=== PATIENT | female | born 1955 | race Caucasian/White ===

== ENCOUNTER 2017-11-28 12:35 | Inpatient (IN) ==
[2017-11-28] MEDS ORDERED: Naloxone Inj 0.4 MG/ML Vial ONE (12:42)
[2017-11-28] MEDS ORDERED: Naloxone Inj 2 MG/2 ML Vial IV.PUSH SCH (12:45)
[2017-11-28] MEDS ORDERED: Sod Chloride 0.9% Inj 1,000 ML IV.SIG SCH ×3 (12:45)
[2017-11-28 12:55] LABS: ABG Base Excess -2.8 mmol/L (-2-2); ABG PCO2 49 mmHg (38-42); ABG PO2 96 mmHg (61-120)
[2017-11-28 13:05] LABS: Baso # (Auto) 0.4 th/mm3 (0.0-0.2); Baso % (Auto) 3.5 % (0.0-2.0); Hematocrit 41.4 % (35.0-46.0); Hemoglobin 13.6 gm/dL (11.6-15.3); Lymph # (Auto) 0.6 th/mm3 (1.0-4.8); Lymph % (Auto) 4.6 % (9.0-44.0); Mean Corpuscular HGB Conc 32.8 % (32.0-36.0); Mean Corpuscular Volume 91.3 fL (80.0-100.0); Mono # (Auto) 0.3 th/mm3 (0.0-0.9); Mono % (Auto) 2.2 % (0.0-8.0); Neut # (Auto) 11.3 th/mm3 (1.8-7.7); Neut % (Auto) 89.7 % (16.0-70.0); Platelet Count 416 th/mm3 (150-450); Red Blood Count 4.54 mil/mm3 (4.00-5.30); Red Cell Distribution Width 14.8 % (11.6-17.2); White Blood Count 12.6 th/mm3 (4.0-11.0)
[2017-11-28 13:07] LABS: Chloride 103 meq/L (98-107); Potassium 3.8 meq/L (3.5-5.1); Sodium 140 meq/L (136-145)
[2017-11-28 13:10] LABS: Calcium 8.3 mg/dL (8.5-10.1)
[2017-11-28 13:11] LABS: Activated Partial Thrombo Time 25.8 sec (24.3-30.1); Albumin 3.8 g/dL (3.4-5.0); Anion Gap 12 meq/L (5-15); Blood Urea Nitrogen 11 mg/dL (7-18); Carbon Dioxide 25.3 meq/L (21.0-32.0); Glucose,Random 127 mg/dL (74-106); Lipase 88 U/L (73-393); Magnesium 2.2 mg/dL (1.5-2.5); Prothrombin Time 10.4 sec (9.8-11.6)
[2017-11-28 13:14] LABS: Alanine Aminotransferase 18 U/L (10-53); Aspartate Aminotransferase 17 U/L (15-37); Glomerular Filtration Rate 38 mL/min (>89); Phosphorus 5.8 mg/dL (2.5-4.9)
[2017-11-28 13:15] LABS: Total Protein 7.2 g/dL (6.4-8.2)
[2017-11-28 13:16] LABS: Alkaline Phosphatase 74 U/L (45-117)
[2017-11-28 13:19] LABS: Troponin I 0.13 ng/mL (0.02-0.05)
--- NOTE | 2017-11-28 13:26 | CT ---
EXAM DATE: 11/28/2017 1:21 PM EDT AGE/SEX: 62 years / Female INDICATIONS: Altered mental status CLINICAL DATA: This is the patient's initial encounter. Patient reports that signs and symptoms have been present for 1 day and indicates a pain score of Nonresponsive. MEDICAL/SURGICAL HISTORY: Non-responsive. Non-responsive. RADIATION DOSE: 66.93 CTDI (mGy) COMPARISON: No prior exams available for comparison. TECHNIQUE: CT of the head without contrast. Using automated exposure control and adjustment of the mA and/or kV according to patient size, radiation dose was kept as low as reasonably achievable to ob tain optimal diagnostic quality images. DICOM format image data is available electronically for revi ew and comparison. FINDINGS: Study degraded by motion artifact. The study was repeated. These were the best obtainable i mages. Cerebrum: The ventricles are normal for age. No evidence of midline shift, mass lesion, hemorrhage or acute infarction. No extraaxial fluid collections are seen. Posterior Fossa: The cerebellum and brainstem are intact. The 4th ventricle is midline. The cerebe llopontine angle is unremarkable. Extracranial: The visualized portion of the orbits is intact. Skull: The calvaria is intact. No evidence of skull fracture. CONCLUSION: 1. Study limited by motion. 2. No gross acute intracranial abnormality. . Electronically signed by: Doron Ray MD 11/28/2017 1:25 PM EDT
[2017-11-28 13:27] LABS: Creatine Kinase 33 U/L (26-192)
--- NOTE | 2017-11-28 13:27 | ED ---
HPI General Chief Complaint: Altered Mental Status Stated Complaint: Unconscious/Evac Time Seen by Provider: 11/28/17 12:43 Source: family and EMS Mode of arrival: EMS Limitations: altered mental status History of Present Illness HPI narrative: The patient 62 years old. She arrives to the ER by EMS. A friend went to visit the patient and found her to be unresponsive. EMS noted pinpoint pupils and administered 0.8 mg Narcan. No change was observed. Patient has a history of TMJ, chronic back pain as well as other chronic pain related complaints. EMS reports the patient takes oxycodone. Review of the medications includes temazepam, Percocet, Skelaxin, and Zaleplon in addition to Zofran and Dexilant and duloxetine. History is limited due to altered mental status upon arrival. GCS 3 upon arrival. Related Data Home Medications Medication Instructions Recorded Confirmed dexlansoprazole [Dexilant] 60 mg PO DAILY 11/28/17 11/28/17 duloxetine 60 mg PO DAILY 11/28/17 11/28/17 metaxalone [Skelaxin] 800 mg PO TID 11/28/17 11/28/17 ondansetron 8 mg PO TID PRN 11/28/17 11/28/17 oxycodone-acetaminophen [Percocet] 1 tab PO Q4H PRN 11/28/17 11/28/17 temazepam [Restoril] 11/28/17 thyroid (pork) [[place] Thyroid] 15 mg PO DAILY 11/28/17 11/28/17 zaleplon 10 mg PO DAILY 11/28/17 11/28/17 Allergies Allergy/AdvReac Type Severity Reaction Status Date / Time diazepam [From Valium] Allergy Anxiety Verified 11/28/17 14:55 hydromorphone [From Dilaudid] Allergy Hallucinati Verified 11/28/17 14:57 ons meperidine [From Demerol] Allergy Nausea/Vomi Verified 11/28/17 14:57 ting propoxyphene [From Darvon] Allergy Nausea/Vomi Verified 11/28/17 14:57 ting Review of Systems ROS Unobtainable ROS Unobtainable: unobtainable due to mental condition and unobtainable due to mental status PMFSH Medical History Medical History Bursitis (Acute) Gastric ulcer (Acute) IBS (irritable bowel syndrome) (Acute) Migraines (Acute) Rotator cuff (capsule) sprain (Acute) Rotator cuff arthropathy of right shoulder (Acute) Sinusitis (Acute) TMJ (dislocation of temporomandibular joint) (Acute) Surgical History Surgical History History of ear, nose, and throat (ENT) surgery (Acute) History of surgery on arm (Acute) Social History Social History Substance History: Unable to Obtain Smoking Status: Unknown if ever smoked How Often Do You Have a Drink Containing Alcohol: Unable to Obtain Recent Travel in [facility] within the Last 8 Weeks: No Recent Out of Country Travel within the Last 8 Weeks: No Exam Narrative Exam Narrative: GENERAL: 62-year-old female well-nourished well-developed GCS 3 SKIN: Focused skin assessment warm/dry. HEAD: Atraumatic. Normocephalic. EYES: Pupils are about 2 mm bilaterally. They are responsive to light. They are equal and reactive bilaterally. ENT: No nasal bleeding or discharge. Mucous membranes pink and moist. NECK: Trachea midline. No JVD. CARDIOVASCULAR: Heart rate is approximately 130-1500. Regular rhythm. RESPIRATORY: No accessory muscle use. Clear to auscultation. Breath sounds equal bilaterally. GASTROINTESTINAL: Abdomen soft, non-tender, nondistended. Hepatic and splenic margins not palpable. MUSCULOSKELETAL: No obvious deformities. No clubbing. No cyanosis. No edema. NEUROLOGICAL:GCS 3. Face appears symmetric. PSYCHIATRIC: Appropriate mood and affect; insight and judgment normal. Course Initial Documented Vital Signs Temperature 99.3 F 11/28/17 12:35 Pulse Rate 124 H 11/28/17 12:35 Respiratory Rate 24 11/28/17 12:35 Blood Pressure 133/83 11/28/17 12:35 Pulse Oximetry 93 L 11/28/17 12:35 Last Documented Vital Signs Temperature 99.3 F 11/28/17 12:35 Pulse Rate 114 H 11/28/17 13:58 Respiratory Rate 18 11/28/17 13:58 Blood Pressure 111/75 11/28/17 13:58 Pulse Oximetry 95 11/28/17 13:44 Procedures Intubation Time Out Performed: No Sedative: etomidate Mg Given: 20 Laryngoscope: Gaurang ET Tube Size: 7.5 Tube Secured Depth (cm): 22 Tube Secured Location: lips Tube Placement Confirmation: visualized tube passing through cords, equal breath sounds bilaterally, no breath sounds over epigastrium and confirmation by capnometry Patient Tolerated Procedure: well Intubation Complications: none Critical Care Time Critical Care Time: Yes Total Critical Care Time: 50 Attestation: Aggregate critical care time was 40 minutes. Time to perform other separately billable procedures was not included in the critical care time. My time did not include minutes spent treating any other patients simultaneously or on activities that did not directly contribute to the patient's treatment. The services I provided to this patient were to treat and/or prevent clinically significant deterioration that could result in: Cardiopulmonary arrest, permanent weakness I provided critical care services requiring my management, as noted below: Chart data review, documentation time, medication orders and management, vital sign assessments/reviewing monitor data, ordering and reviewing lab tests, ordering and interpreting/reviewing x-rays and diagnostic studies, care of the patient and discussion of the patient with the admitting physicians. Medical Decision Making MDM Narrative Medical decision making narrative: Pt awoke for about ten seconds after one 4mg IV Narcan dose. Movements were symmetric and face remained symmetric in appearance during the brief interval responsiveness. Patient was intubated about an hour after a stay of the mental status had not changed and the O2 94 on a nonrebreather and nasal cannula was etiology unclear however polypharmacy strongly considered given the breath of sedative agents that the patient takes. We do see a bilateral pneumonia of indeterminate etiology may be aspiration. Case was discussed with Dr. Ray for the [employer] interface developer service. The patient will stay here [place]. Family reported the patient has a history of symptoms stapes which is evidently contraindication to MR imaging. Medical Screen Exam Complete: Yes Emergency Medical Condition: Yes Differential Diagnosis Differential Diagnosis: sepsis, ich, ischemic cva, anoxia, polypharmacy Medical Records not available. Lab Data Lab results reviewed: Yes I reviewed the patient's lab results. Lab results narrative: LFTs normal U tox Result diagrams: 11/28/17 12:53 11/28/17 12:53 Lab Results 11/28/17 11/28/17 11/28/17 Range/Units 12:48 12:53 12:53 CBC w Diff Auto diff final WBC 12.6 H (4.0-11.0) th/mm3 RBC 4.54 (4.00-5.30) mil/mm3 Hgb 13.6 (11.6-15.3) gm/dL Hct 41.4 (35.0-46.0) % MCV 91.3 (80.0-100.0) fL MCH 30.0 (27.0-34.0) pg MCHC 32.8 (32.0-36.0) % RDW 14.8 (11.6-17.2) % Plt Count 416 (150-450) th/mm3 MPV 8.0 (7.0-11.0) fL Neut % (Auto) 89.7 H (16.0-70.0) % Lymph % (Auto) 4.6 L (9.0-44.0) % [place]field % (Auto) 2.2 (0.0-8.0) % Eos % (Auto) 0.0 (0.0-4.0) % Baso % (Auto) 3.5 H (0.0-2.0) % Neut # (Auto) 11.3 H (1.8-7.7) th/mm3 Lymph # (Auto) 0.6 L (1.0-4.8) th/mm3 [place]field # (Auto) 0.3 (0.0-0.9) th/mm3 Eos # (Auto) 0.0 (0.0-0.4) th/mm3 Baso # (Auto) 0.4 H (0.0-0.2) th/mm3 WBC Differential . Differential Comment . PT 10.4 (9.8-11.6) sec INR 1.0 Ratio APTT 25.8 (24.3-30.1) sec Puncture Site Right radial Patient Temperature 98.6 O2 Saturation 95 (90-100) % ABG pH 7.29 L* (7.380-7.420) ABG pCO2 49 H (38-42) mmHg ABG pO2 96 (61-120) mmHg ABG HCO3 23 (22-26) mmol/L ABG O2 Content 16.6 (12.0-20.0) Vol % ABG Base Excess -2.8 L (-2-2) mmol/L ABG Methemoglobin 1.3 (0-2) % Jared Test Present Hemoglobin 12.3 (12.0-16.0) G/DL Carboxyhemoglobin 1.3 (0-4) % O2 Delivery Device Nrb Liter Flow 12.00 L/M Critical Value Yes Sodium (136-145) meq/L Potassium (3.5-5.1) meq/L Chloride (98-107) meq/L Carbon Dioxide (21.0-32.0) meq/L Anion Gap (5-15) meq/L BUN (7-18) mg/dL Creatinine (0.50-1.00) mg/dL Estimated GFR (>89) mL/min Random Glucose (74-106) mg/dL Lactic Acid (0.4-2.0) mmol/L Calcium (8.5-10.1) mg/dL Phosphorus (2.5-4.9) mg/dL Magnesium (1.5-2.5) mg/dL Total Bilirubin (0.2-1.0) mg/dL AST (15-37) U/L ALT (10-53) U/L Alkaline Phosphatase (45-117) U/L Total Creatine Kinase (26-192) U/L Troponin I (0.02-0.05) ng/mL Total Protein (6.4-8.2) g/dL Albumin (3.4-5.0) g/dL Lipase (73-393) U/L Ur Collection Type Urine Color (Yellw/Straw) Urine Clarity (Clear) Urine pH (5.0-8.5) Ur Specific [place] (1.002-1.035) Urine Protein (Neg-Trace) mg/dL Urine Glucose (UA) (Negative) mg/dL Urine Ketones (Negative) mg/dL Urine Occult Blood (Negative) Urine Nitrate (Negative) Urine Bilirubin (Negative) Urine Urobilinogen (Less than 2) mg/dL Ur Leukocyte Esterase (Negative) Ur Transition Epith Cell (None) /hpf Amorphous Sediment (None) /hpf Micro UA Comment Ur Microscopic Review Urine Culture Comments Urine Collection Time hours Salicylates (2.8-20.0) mg/dL Acetaminophen (10.0-30.0) mcg/mL Serum Alcohol (0-5) mg/dL 11/28/17 11/28/17 11/28/17 Range/Units 12:53 12:53 12:53 CBC w Diff WBC (4.0-11.0) th/mm3 RBC (4.00-5.30) mil/mm3 Hgb (11.6-15.3) gm/dL Hct (35.0-46.0) % MCV (80.0-100.0) fL MCH (27.0-34.0) pg MCHC (32.0-36.0) % RDW (11.6-17.2) % Plt Count (150-450) th/mm3 MPV (7.0-11.0) fL Neut % (Auto) (16.0-70.0) % Lymph % (Auto) (9.0-44.0) % [place]field % (Auto) (0.0-8.0) % Eos % (Auto) (0.0-4.0) % Baso % (Auto) (0.0-2.0) % Neut # (Auto) (1.8-7.7) th/mm3 Lymph # (Auto) (1.0-4.8) th/mm3 [place] # (Auto) (0.0-0.9) th/mm3 Eos # (Auto) (0.0-0.4) th/mm3 Baso # (Auto) (0.0-0.2) th/mm3 WBC Differential Differential Comment PT (9.8-11.6) sec INR Ratio APTT (24.3-30.1) sec Puncture Site Patient Temperature O2 Saturation (90-100) % ABG pH (7.380-7.420) ABG pCO2 (38-42) mmHg ABG pO2 (61-120) mmHg ABG HCO3 (22-26) mmol/L ABG O2 Content (12.0-20.0) Vol % ABG Base Excess (-2-2) mmol/L ABG Methemoglobin (0-2) % Jared Test Hemoglobin (12.0-16.0) G/DL Carboxyhemoglobin (0-4) % O2 Delivery Device Liter Flow L/M Critical Value Sodium 140 (136-145) meq/L Potassium 3.8 (3.5-5.1) meq/L Chloride 103 (98-107) meq/L Carbon Dioxide 25.3 (21.0-32.0) meq/L Anion Gap 12 (5-15) meq/L BUN 11 (7-18) mg/dL Creatinine 1.40 H (0.50-1.00) mg/dL Estimated GFR 38 L (>89) mL/min Random Glucose 127 H (74-106) mg/dL Lactic Acid (0.4-2.0) mmol/L Calcium 8.3 L (8.5-10.1) mg/dL Phosphorus 5.8 H (2.5-4.9) mg/dL Magnesium 2.2 (1.5-2.5) mg/dL Total Bilirubin Less than 0.1 L (0.2-1.0) mg/dL AST 17 (15-37) U/L ALT 18 (10-53) U/L Alkaline Phosphatase 74 (45-117) U/L Total Creatine Kinase 33 (26-192) U/L Troponin I 0.13 H (0.02-0.05) ng/mL Total Protein 7.2 (6.4-8.2) g/dL Albumin 3.8 (3.4-5.0) g/dL Lipase 88 (73-393) U/L Ur Collection Type Urine Color (Yellw/Straw) Urine Clarity (Clear) Urine pH (5.0-8.5) Ur Specific [place] (1.002-1.035) Urine Protein (Neg-Trace) mg/dL Urine Glucose (UA) (Negative) mg/dL Urine Ketones (Negative) mg/dL Urine Occult Blood (Negative) Urine Nitrate (Negative) Urine Bilirubin (Negative) Urine Urobilinogen (Less than 2) mg/dL Ur Leukocyte Esterase (Negative) Ur Transition Epith Cell (None) /hpf Amorphous Sediment (None) /hpf Micro UA Comment Ur Microscopic Review Urine Culture Comments Urine Collection Time hours Salicylates Less than 1.7 L (2.8-20.0) mg/dL Acetaminophen 3.0 L (10.0-30.0) mcg/mL Serum Alcohol Less than 3 (0-5) mg/dL 11/28/17 11/28/17 Range/Units 13:40 13:52 CBC w Diff WBC (4.0-11.0) th/mm3 RBC (4.00-5.30) mil/mm3 Hgb (11.6-15.3) gm/dL Hct (35.0-46.0) % MCV (80.0-100.0) fL MCH (27.0-34.0) pg MCHC (32.0-36.0) % RDW (11.6-17.2) % Plt Count (150-450) th/mm3 MPV (7.0-11.0) fL Neut % (Auto) (16.0-70.0) % Lymph % (Auto) (9.0-44.0) % [place]field % (Auto) (0.0-8.0) % Eos % (Auto) (0.0-4.0) % Baso % (Auto) (0.0-2.0) % Neut # (Auto) (1.8-7.7) th/mm3 Lymph # (Auto) (1.0-4.8) th/mm3 [place] # (Auto) (0.0-0.9) th/mm3 Eos # (Auto) (0.0-0.4) th/mm3 Baso # (Auto) (0.0-0.2) th/mm3 WBC Differential Differential Comment PT (9.8-11.6) sec INR Ratio APTT (24.3-30.1) sec Puncture Site Patient Temperature O2 Saturation (90-100) % ABG pH (7.380-7.420) ABG pCO2 (38-42) mmHg ABG pO2 (61-120) mmHg ABG HCO3 (22-26) mmol/L ABG O2 Content (12.0-20.0) Vol % ABG Base Excess (-2-2) mmol/L ABG Methemoglobin (0-2) % Jared Test Hemoglobin (12.0-16.0) G/DL Carboxyhemoglobin (0-4) % O2 Delivery Device Liter Flow L/M Critical Value Sodium (136-145) meq/L Potassium (3.5-5.1) meq/L Chloride (98-107) meq/L Carbon Dioxide (21.0-32.0) meq/L Anion Gap (5-15) meq/L BUN (7-18) mg/dL Creatinine (0.50-1.00) mg/dL Estimated GFR (>89) mL/min Random Glucose (74-106) mg/dL Lactic Acid 2.2 H (0.4-2.0) mmol/L Calcium (8.5-10.1) mg/dL Phosphorus (2.5-4.9) mg/dL Magnesium (1.5-2.5) mg/dL Total Bilirubin (0.2-1.0) mg/dL AST (15-37) U/L ALT (10-53) U/L Alkaline Phosphatase (45-117) U/L Total Creatine Kinase (26-192) U/L Troponin I (0.02-0.05) ng/mL Total Protein (6.4-8.2) g/dL Albumin (3.4-5.0) g/dL Lipase (73-393) U/L Ur Collection Type Cath Urine Color Yellow (Yellw/Straw) Urine Clarity Clear (Clear) Urine pH 5.0 (5.0-8.5) Ur Specific [place] 1.010 (1.002-1.035) Urine Protein Negative (Neg-Trace) mg/dL Urine Glucose (UA) Negative (Negative) mg/dL Urine Ketones Negative (Negative) mg/dL Urine Occult Blood Negative (Negative) Urine Nitrate Negative (Negative) Urine Bilirubin Negative (Negative) Urine Urobilinogen 0.2 (Less than 2) mg/dL Ur Leukocyte Esterase Negative (Negative) Ur Transition Epith Cell 1-5 H (None) /hpf Amorphous Sediment Moderate H (None) /hpf Micro UA Comment Cath-culture not ind Ur Microscopic Review Microscopic reviewed Urine Culture Comments Cath-cult not ind Urine Collection Time 1352 hours Salicylates (2.8-20.0) mg/dL Acetaminophen (10.0-30.0) mcg/mL Serum Alcohol (0-5) mg/dL Imaging Data Radiologist's impression: Chest X-Ray 11/28/17 12:44 CONCLUSION: Endotracheal tube. Mild bibasilar atelectasis versus developing infiltrates. Head CT 11/28/17 12:44 CONCLUSION: 1. Study limited by motion. 2. No gross acute intracranial abnormality. . Chest CTA 11/28/17 12:47 CONCLUSION: 1. Mildly distended and fluid-filled esophagus. 2. Bilateral airspace disease. 3. No evidence for pulmonary embolism. Discharge Plan Discharge Disposition Patient Disposition: 30 Still Patient Physicians Team ED Provider: Fidencio Ng Primary Care Provider: UNKNOWN, Attending Provider: Roshan Lowry Discharge Interventions Interventions: Vital Signs Last Done: 11/28/17 13:58 Status ED Status: Admitted Patient
--- NOTE | 2017-11-28 13:44 | CT ---
EXAM DATE: 11/28/2017 1:36 PM EDT AGE/SEX: 62 years / Female INDICATIONS: Chest Pain CLINICAL DATA: This is the patient's initial encounter. Patient reports that signs and symptoms have been present for 1 day and indicates a pain score of Nonresponsive. MEDICAL/SURGICAL HISTORY: Non-responsive. Non-responsive. RADIATION DOSE: 20.49 CTDI (mGy) COMPARISON: [facility], CHEST 1V SINGLE AP, 11/28/2017. . TECHNIQUE: Volumetric scanning was performed using a multi-row detector CT scanner during bolus infu mega of 80ML ml Omnipaque 350 (iohexol) nonionic water-soluble contrast as a single exam dose. The d jimmie was post processed with a variety of visualization algorithms including full volume maximum inten sity projection and sliding thin slab reformation. Using automated exposure control and adjustment o f the mA and/or kV according to patient size, radiation dose was kept as low as reasonably achievable to obtain optimal diagnostic quality images. DICOM format image data is available electronically fo r review and comparison. FINDINGS: The esophagus is mildly distended and fluid-filled. Small pericardial effusion. No evidence for pulmo nary embolism. No pathologically enlarged lymph nodes are seen. Coronary artery calcification is note d. Review of lung windows demonstrate patchy consolidation in the right upper lobe, scattered nodular infiltrates in the left upper lobe, and bilateral lower lobe consolidation with air bronchogram form ation. There are degenerative changes of the spine seen. CONCLUSION: 1. Mildly distended and fluid-filled esophagus. 2. Bilateral airspace disease. 3. No evidence for pulmonary embolism. Electronically signed by: Jim Morales MD 11/28/2017 1:42 PM EDT
[2017-11-28] MEDS ORDERED: Etomidate Inj 40 MG/20 ML Vial IV.PUSH ONE (13:54)
[2017-11-28] MEDS ORDERED: Vancomycin Inj 1 GM/200 ML PIGGYBACK IV.SIG SCH (14:00)
--- NOTE | 2017-11-28 14:18 | XR ---
EXAM DATE: 11/28/2017 2:15 PM EDT AGE/SEX: 62 years / Female INDICATIONS: Post intubation CLINICAL DATA: This is the patient's initial encounter. Patient reports that signs and symptoms have been present for 1 day and indicates a pain score of Nonresponsive. MEDICAL/SURGICAL HISTORY: Non-responsive. Non-responsive. COMPARISON: No prior exams available for comparison. FINDINGS: A single AP view of the chest demonstrates an endotracheal tube with the tip 1.5 cm from the adali. The heart shows a left ventricular prominence. Medial bibasilar consolidations are noted. No effusion s. Remaining lungs are clear. Underlying chronic interstitial changes noted. CONCLUSION: Endotracheal tube. Mild bibasilar atelectasis versus developing infiltrates. Electronically signed by: Doron Ray MD 11/28/2017 2:16 PM EDT
[2017-11-28 14:20] LABS: Bilirubin,Urine Negative (Negative); Clarity,Urine Clear (Clear); Color,Urine Yellow (Yellw/Straw); Glucose,Urine (UA) Negative (Negative); Leukocyte Esterase,Urine Negative (Negative); Nitrite,Urine Negative (Negative); Urobilinogen,Urine 0.2 mg/dL (Less than 2)
[2017-11-28 14:23] LABS: Collection Time,Urine 1352 hours
[2017-11-28 14:24] LABS: Amorphous Sediment,Urine Moderate /hpf
[2017-11-28] MEDS ORDERED: Magnesium Sulfate Inj 4 GM in Sodium Chlor 0.9% Inj 92 ML IV.SIG PRN (14:25)
[2017-11-28] MEDS ORDERED: Potassium Phosphate Inj 30 MMOL in Sodium Chlor 0.9% Inj 250 ML IV.SIG PRN (14:25)
[2017-11-28] MEDS ORDERED: Magnesium Oxide 400 MG Tablet PO PRN (14:25)
[2017-11-28] MEDS ORDERED: Sodium Phosphate Inj 30 MMOL in Sodium Chlor 0.9% Inj 250 ML IV.SIG PRN (14:25)
[2017-11-28] MEDS ORDERED: Magnesium Sulfate Inj 2 GM in Sodium Chlor 0.9% Inj 96 ML IV.SIG PRN (14:25)
[2017-11-28] MEDS ORDERED: Potassium Chloride 25 MEQ Effervescent Tablet PO PRN (14:25)
[2017-11-28] MEDS ORDERED: Potassium Chlor 20 mEq Premix 20 MEQ/100 ML PIGGYBACK IV.SIG PRN ×2 (14:25)
[2017-11-28] MEDS ORDERED: Bisacodyl 10 MG Supp RECTAL PRN (14:25)
[2017-11-28] MEDS ORDERED: Potassium Phosphate 500 MG Soluble Tablet PO PRN ×2 (14:25)
[2017-11-28] MEDS ORDERED: Potassium Chlor 40 mEq Premix 40 MEQ/100 ML PIGGYBACK IV.SIG PRN ×2 (14:25)
[2017-11-28] MEDS ORDERED: Propofol 1000 mg/100 ml Inj 1,000 MG/100 ML BOTTLE IV.CONT PRN (14:29)
[2017-11-28] MEDS ORDERED: Naloxone Inj 2 MG/2 ML Vial IV.PUSH ONE ×3 (14:53→14:54)
[2017-11-28] MEDS ORDERED: Naloxone Inj 0.4 MG/ML Vial IV.PUSH ONE ×2 (14:54→14:55)
[2017-11-28] MEDS ORDERED: Etomidate Inj 20 MG/10 ML Ampul IV.PUSH ONE (14:55)
[2017-11-28] MEDS ORDERED: Vancomycin Consult Pharmacy OTHER PRN (15:00)
[2017-11-28] MEDS ORDERED: Vancomycin Inj 1,000 MG in Sodium Chlor 0.9% Inj 250 ML IV.SIG ONE (15:00)
[2017-11-28 15:13] LABS: ABG PCO2 43 mmHg (38-42); ABG PO2 82 mmHg (61-120)
[2017-11-28] MEDS: Enoxaparin Inj 40 MG/0.4 ML Syringe SQ SCH (16:26)
--- NOTE | 2017-11-28 16:46 | XR ---
EXAM DATE: 11/28/2017 4:36 PM EDT AGE/SEX: 62 years / Female INDICATIONS: OG tube placement. CLINICAL DATA: This is the patient's initial encounter. Patient reports that signs and symptoms have been present for 1 day and indicates a pain score of Nonresponsive. MEDICAL/SURGICAL HISTORY: Non-responsive. Non-responsive. COMPARISON: No prior exams available for comparison. FINDINGS: Single AP view of the abdomen. Nasogastric tube is in place with the tip in the distal stomach. Endot khalif tube tip is 1 cm above the adali. CONCLUSION: Nasogastric tube in place with the tip in the distal stomach. Electronically signed by: Huber Coley MD 11/28/2017 4:45 PM EDT
[2017-11-28] MEDS ORDERED: Naloxone Inj 4 MG/10 ML MDV IV.PUSH ONE (16:59)
[2017-11-28] MEDS: Oral Hygiene Kit OROPHARYNG SCH (17:03)
--- NOTE | 2017-11-28 17:16 | P.HPCC ---
History of Present Illness Service: Critical Care Medicine Primary Care Physician: UNKNOWN Chief Complaint: altered mental status History of Present Illness: 62yF with history of chronic pain on multiple psychotropic drugs including percocet, found unresponsive by her sister at home. Per her sister, she usually sleeps a lot, and she was last seen normal at 1300 on 11/27. Today after almost 23 hours, she went to wake her sister and found her unresponsive. On further investigation tonight, her sister found an empty bottle which was labeled "oxycodone/APAP". brought in by EMS. GCS 3. pupils pinpoint. no improvement with [address] head, chest negative for acute disease. ? aspiration pneumonia. unknown other history. ROS unobtainable. slightly elevated Cr, wbc elevated with left shift, lactate rising. afebrile, blood pressure stable. tachycardic. intubated in the ER for persistent encephalopathy. no additional information available. Inpatient Certification: I certify that the inpatient services were ordered in accordance with Medicare regulations governing the order. This includes certification that hospital inpatient services are reasonable and necessary and in the case of services not specified as inpatient-only under 42 CFR 419.22(n), that they are appropriately provided as inpatient services in accordance to with the 2-midnight benchmark under 43 CFR 412.3(e) Estimated Total Length of Stay (Days): 7 Plans for Post Hospital Care: Not yet determined Review of Systems unobtainable due to endotracheal tube, unobtainable due to mental condition, unobtainable due to mental status PMFSH - History History Provided By: Medical Record - Medical / Surgical Hx Neg / Unobtainable Medical Problems Denied: Unable to Obtain Surgical History: Unable to Obtain - Medical History Medical History: Medical History (Last Reviewed 11/28/17 @ 17:08 by Roshan Lowry MD) Bursitis Gastric ulcer IBS (irritable bowel syndrome) Migraines Rotator cuff (capsule) sprain Rotator cuff arthropathy of right shoulder Sinusitis TMJ (dislocation of temporomandibular joint) - Surgical History Surgical History: Surgical History (Last Reviewed 11/28/17 @ 17:08 by Roshan Lowry MD) History of ear, nose, and throat (ENT) surgery History of surgery on arm - Social History I have reviewed the patient's Social History: Yes - Tobacco History Smoking Status: Unknown if ever smoked - Alcohol History How Often Do You Have a Drink Containing Alcohol: Unable to Obtain - Substance Use History Substance History: Unable to Obtain - Travel History Recent Travel in the [place] Within the Last 8 Weeks: No Recent Travel Out of the Country Within the Last 8 Weeks: No - Immunization History Tetanus Immunization: Unable to Assess Hx Influenza Vaccine This Season: Unable to Assess Medications and Allergies Active Medications: Active Medications Albuterol (Duoneb Neb (Prn)) 1 ampul NEB Q2HR NEB PRN PRN Reason: WHEEZING Albuterol (Duoneb Neb (Mago)) 1 ampul NEB Q6HR NEB [facility] Last Admin: 11/28/17 15:50 Dose: 1 ampul Bisacodyl (Dulcolax Supp) 10 mg RECTAL DAILY PRN PRN Reason: if no BM in last 24h Chlorhexidine Gluconate (Chlorhexidine 2% Cloth) 3 pack TOPICAL DAILY@0400 [facility] Stop: 12/04/17 03:59 Chlorhexidine Gluconate (Chlorhexidine 2% Cloth) 3 pack TOPICAL DAILY@0400 PRN PRN Reason: Extra cloth needed Stop: 12/04/17 03:59 Chlorhexidine Gluconate (Peridex 0.12% Oral Kit) 15 ml OROPHARYNG BID@0800, 2000 [facility] Dextrose (D50w Syringe) 50 ml IV.PUSH UNSCH PRN PRN Reason: PER HYPOGLYCEMIA PROTOCOL Enoxaparin Sodium (Lovenox Inj) 40 mg SQ Q24H [facility] Last Admin: 11/28/17 16:26 Dose: 40 mg Famotidine (Pepcid Pf Inj) 20 mg IV.PUSH Q12HR [facility] Glucagon (Glucagon Inj) 1 mg IM ONCE PRN PRN Reason: blood sugar < 60, no iv access Sodium Chloride (Ns Inj) 1,000 mls @ 0 mls/hr IV.SIG .Q0M [facility] Last Infusion: 11/28/17 14:01 Dose: Infused Sodium Chloride (Ns Inj) 1,000 mls @ 0 mls/hr IV.SIG .Q0M [facility] Last Infusion: 11/28/17 16:26 Dose: Infused Sodium Chloride (Ns Inj) 1,000 mls @ 0 mls/hr IV.SIG .Q0M [facility] Last Infusion: 11/28/17 16:26 Dose: Infused Lactated Ringer's (Lr 1000 Ml Inj) 1,000 mls @ 999 mls/hr IV.CONT .Q1H1M [facility] Last Admin: 11/28/17 17:03 Dose: Not Given Lactated Ringer's (Lr 1000 Ml Inj) 1,000 mls @ 84 mls/hr IV.CONT .[id number] [facility] Last Admin: 11/28/17 17:03 Dose: 84 mls/hr Magnesium Sulfate Inj 4 gm/ (Sodium Chloride) 100 mls @ 50 mls/hr IV.SIG UNSCH PRN PRN Reason: For Magnesium 0.9 - 1.1 mg/dL Magnesium Sulfate Inj 2 gm/ (Sodium Chloride) 100 mls @ 50 mls/hr IV.SIG UNSCH PRN PRN Reason: For Magnesium 1.2 - 1.6 mg/dL Potassium Chloride (Kcl 40 Meq Premix Inj) 40 meq in 100 mls @ 25 mls/hr IV.SIG Q2H PRN PRN Reason: For Potassium 2.8 - 3.2 mEq/L Potassium Chloride (Kcl 20 Meq Premix Inj) 20 meq in 100 mls @ 50 mls/hr IV.SIG Q2H PRN PRN Reason: For Potassium 3.3 - 3.5 mEq/L Potassium Chloride (Kcl 40 Meq Premix Inj) 40 meq in 100 mls @ 25 mls/hr IV.SIG UNSCH PRN PRN Reason: For Potassium 3.3 - 3.5 mEq/L Potassium Chloride (Kcl 20 Meq Premix Inj) 20 meq in 100 mls @ 50 mls/hr IV.SIG Q2H PRN PRN Reason: For Potassium 2.8 - 3.2 mEq/L Potassium Phosphate 30 mmol/ (Sodium Chloride) 260 mls @ 42 mls/hr IV.SIG UNSCH PRN PRN Reason: SEE LABEL COMMENTS Propofol (Diprivan 1000 Mg/100 Ml Inj) 1,000 mg in 100 mls @ 3.13 mls/hr IV.CONT TITRATE PRN; Protocol PRN Reason: Per Protocol Last Titration: 11/28/17 16:49 Dose: 10 mcg/kg/min, 6.26 mls/hr Sodium Phosphate 30 mmol/ (Sodium Chloride) 260 mls @ 42 mls/hr IV.SIG UNSCH PRN PRN Reason: For Phosphorus < 2.5 mg/dL Ampicillin Sodium/Sulbactam (Sodium 3 gm/ Sodium Chloride) 100 mls @ 200 mls/ hr IV.SIG Q6H [facility] Insulin Human Regular (Novolin R Inj) 1 units SQ Q6HR [facility]; Protocol Lactulose (Lactulose Liq) 30 ml PO BID [facility] Magnesium Oxide (Mag-Ox) 800 mg PO UNSCH PRN PRN Reason: For Magnesium 1.2 - 1.6 mg/dL Ondansetron HCl (Zofran Inj) 4 mg IV.PUSH Q6H PRN PRN Reason: NAUSEA OR VOMITING Pharmacy Profile Note (Vancomycin Consult Pharmacy) 1 each OTHER UNSCH PRN PRN Reason: Pharmacy to dose Polyethylene Glycol (Miralax) 17 gm PO BID [facility] Potassium Bicarb/Potassium Chloride (K-Lyte Cl Eff) 50 meq PO UNSCH PRN PRN Reason: For Potassium 3.3 - 3.5 mEq/L Potassium Phosphate (K-Phos Original) 2,000 mg PO Q4H PRN PRN Reason: Phosphorus Less Than 2.5 mg/dL Potassium Phosphate (K-Phos Original) 2,000 mg PO UNSCH PRN PRN Reason: SEE LABEL COMMENTS Senna/Docusate Sodium (Carmen-Colace) 1 tab PO BID [facility] Sodium Chloride (Ns Flush) 2 ml IV.FLUSH UNSCH PRN PRN Reason: FLUSH AFTER USING IV ACCESS Allergies Allergy/AdvReac Type Severity Reaction Status Date / Time diazepam [From Valium] Allergy Anxiety Verified 11/28/17 14:55 hydromorphone [From Dilaudid] Allergy Hallucinati Verified 11/28/17 14:57 ons meperidine [From Demerol] Allergy Nausea/Vomi Verified 11/28/17 14:57 ting propoxyphene [From Darvon] Allergy Nausea/Vomi Verified 11/28/17 14:57 ting Home Medications Medication Instructions Recorded Confirmed Type dexlansoprazole [Dexilant] 60 mg PO DAILY 11/28/17 11/28/17 History duloxetine 60 mg PO DAILY 11/28/17 11/28/17 History metaxalone [Skelaxin] 800 mg PO TID 11/28/17 11/28/17 History ondansetron 8 mg PO TID PRN 11/28/17 11/28/17 History oxycodone-acetaminophen [Percocet] 1 tab PO Q4H PRN 11/28/17 11/28/17 History temazepam [Restoril] 11/28/17 History thyroid (pork) [[place] Thyroid] 15 mg PO DAILY 11/28/17 11/28/17 History zaleplon 10 mg PO DAILY 11/28/17 11/28/17 History Results - Labs CBC & Chem 7: 11/28/17 12:53 11/28/17 12:53 Labs: Short CBC 11/28/17 Range/Units 12:53 WBC 12.6 H (4.0-11.0) th/mm3 Hgb 13.6 (11.6-15.3) gm/dL Hct 41.4 (35.0-46.0) % Plt Count 416 (150-450) th/mm3 BMP 11/28/17 12:53 Sodium 140 Potassium 3.8 Chloride 103 Carbon Dioxide 25.3 BUN 11 Creatinine 1.40 H Calcium 8.3 L Cardiac Enzymes 11/28/17 11/28/17 Range/Units 12:53 16:10 Total Creatine Kinase 33 39 (26-192) U/L Troponin I 0.13 H (0.02-0.05) ng/mL Liver Function 11/28/17 Range/Units 12:53 Total Bilirubin Less than 0.1 L (0.2-1.0) mg/dL AST 17 (15-37) U/L ALT 18 (10-53) U/L Alkaline Phosphatase 74 (45-117) U/L Albumin 3.8 (3.4-5.0) g/dL Urine 11/28/17 Range/Units 13:52 Urine Color Yellow (Yellw/Straw) Urine Clarity Clear (Clear) Urine pH 5.0 (5.0-8.5) Ur Specific [place] 1.010 (1.002-1.035) Urine Protein Negative (Neg-Trace) mg/dL Urine Glucose (UA) Negative (Negative) mg/dL - Imaging Impressions Chest X-Ray 11/28/17 12:44 CONCLUSION: Endotracheal tube. Mild bibasilar atelectasis versus developing infiltrates. Head CT 11/28/17 12:44 CONCLUSION: 1. Study limited by motion. 2. No gross acute intracranial abnormality. . Chest CTA 11/28/17 12:47 CONCLUSION: 1. Mildly distended and fluid-filled esophagus. 2. Bilateral airspace disease. 3. No evidence for pulmonary embolism. Abdomen X-Ray 11/28/17 16:11 CONCLUSION: Nasogastric tube in place with the tip in the distal stomach. Exam Vital signs: Vital Signs 11/28/17 12:35 11/28/17 12:44 11/28/17 13:44 Temperature 37.4 C Pulse Rate 124 H 114 H Respiratory Rate 24 18 Blood Pressure 133/83 107/70 Pulse Oximetry 93 L 94 L 95 11/28/17 13:58 11/28/17 14:09 11/28/17 14:24 Temperature Pulse Rate 114 H 118 H Respiratory Rate 18 12 16 Blood Pressure 111/75 114/74 Pulse Oximetry 97 11/28/17 15:51 11/28/17 15:52 11/28/17 15:58 Temperature 36.6 C Pulse Rate 115 H 118 H Respiratory Rate 16 32 H Blood Pressure 127/78 Pulse Oximetry 95 11/28/17 16:05 11/28/17 16:38 Temperature Pulse Rate 116 H 116 H Respiratory Rate 15 0 L Blood Pressure 113/73 118/81 Pulse Oximetry 90 L 98 Intake & Output 11/27/17 11/28/17 11/28/17 18:59 06:59 18:59 Intake Total 3100 / 3100 Balance 3100 / 3100 Weight 86.5 kg Intake: IV 3100 / 3100 Maxipime Inj 2,000 MG In NS Inj 100 / 100 100 ML @ 200 mls/hr IV.SIG ONCE ONE Rx#:[id number] NS Inj 1,000 ML @ Wide Open IV. 3000 / 3000 SIG .Q0M [facility] Rx#:[id number] Other: Weight On Admission 104.326 kg Narrative: gen: middle-aged appearing female, lying in bed, intubated, obtunded heent: nc. at. pupils are 1-2mm, equal, sluggishly reactive. mucous membranes are dry. neck: no jvd. trachea midline. chest: equal chest rise. prvc. fio2 50%. spo2 100%. peep 5. cv: tachycardic rate in the 110s, regular rhythm. sinus. abd: soft, nontender, nondistended. no guarding. extr: warm, well-perfused. distal pulses 2+. no edema : lopez in place with dark yellow urine. Neuro: RASS -4. to deep stimulation will move all 4 extremities, but not purposefully. does not localize. weakly withdraws x 4. does not follow commands. grimaces. GCS 6 ([id number]). +cough. +gag. +corneals. Septic Shock Reassessment Septic shock perfusion: reassessment completed Caprini VTE Risk Assessment Caprini VTE Risk Assessment: Moderate/High Risk (score >= 2) Caprini Risk Assessment Model: Point Value = 1 Point Value = 2 Point Value = 3 Point Value = 5 Age 41-60 Minor surgery BMI > 25 kg/m2 Swollen legs Varicose veins or History of unexplained or recurrent spontaneous Oral contraceptives or hormone replacement Sepsis (< 1 month) Serious lung disease, including pneumonia (< 1 month) Abnormal pulmonary function Acute myocardial infarction Congestive heart failure (< 1 month) History of inflammatory bowel disease Medical patient at bed rest Age 61-74 Arthroscopic surgery Major open surgery (> 45 min) Laparoscopic surgery (> 45 min) Malignancy Confined to bed (> 72 hours) Immobilizing plaster cast Central venous access Age >= 75 History of VTE Family history of VTE Factor V Leiden Prothrombin 79013H Lupus anticoagulant Anticardiolipin antibodies Elevated serum homocysteine Heparin-induced thrombocytopenia Other congenital or acquired thrombophilia Stroke (< 1 month) Elective arthroplasty Hip, pelvis, or leg fracture Acute spinal cord injury (< 1 month) Prophylaxis Regimen: Total Risk Factor Score Risk Level Prophylaxis Regimen 0-1 Low Early ambulation 2 Moderate Order ONE of the following: *Sequential Compression Device (SCD) *Heparin 5000 units SQ BID 3-4 Higher Order ONE of the following medications: *Heparin 5000 units SQ TID *Enoxaparin/Lovenox 40 mg SQ daily (WT < 150 kg, CrCl > 30 mL/min) *Enoxaparin/Lovenox 30 mg SQ daily (WT < 150 kg, CrCl > 10-29 mL/min) *Enoxaparin/Lovenox 30 mg SQ BID (WT < 150 kg, CrCl > 30 mL/min) AND/OR *Sequential Compression Device (SCD) 5 or more Highest Order ONE of the following medications: *Heparin 5000 units SQ TID (Preferred with Epidurals) *Enoxaparin/Lovenox 40 mg SQ daily (WT < 150 kg, CrCl > 30 mL/min) *Enoxaparin/Lovenox 30 mg SQ daily (WT < 150 kg, CrCl > 10-29 mL/min) *Enoxaparin/Lovenox 30 mg SQ BID (WT < 150 kg, CrCl > 30 mL/min) AND *Sequential Compression Device (SCD) Assessment and Plan - Assessment and Plan Plan: Assessment: 62yF with acute encephalopathy. She has a medication list that includes a large list of psychotropic medications. Her tylenol level is negative : will recheck, but if both are negative, very unlikely that she acutely ingested an entire bottle of percocet. More likely that she ingested other pills. Will empirically cover for community acquired aspiration pneumonia and closely observe mental status. Very critically ill with respiratory failure, GRACIELA, and severe encephalopathy most likely secondary to medication overdose. Neuro: Severe Acute encephalopathy- most likely toxic secondary to medication overdose frequent neuro checks avoid long-acting sedatives propofol for goal RASS -2 CT head negative for acute disease MRI brain EEG Resp: Acute hypoxic and hypercarbic respiratory failure Community Acquired Aspiration Pneumonia vent bundle hob elevated nebs wean fio2 for goal spo2 > 90% no weaning of mechanical ventilation until mental status improves CV: Elevated Troponin Sinus tachycardia unclear significance of elevated troponin. most likely type II NSTEMI secondary to demand ischemia or poor renal clearance from GRACIELA. no history to suggest acute coronary syndrome will not heparinize. trend troponins tachycardia likely secondary to SIRS response Renal: Acute kidney injury place lopez frequent uop checks daily Cr FEN/GI: Acute intravascular volume depletion Acute anion-gap metabolic acidosis Lactic Acidosis acidosis likely secondary to combination of dehydration and poor tissue perfusion during time which she was obtunded and unresponsive. trend lactates daily bmp, mg, phos trend lactates mivf NPO while in shock OG to [facility] ICU Electrolyte protocol Heme/ID: Community Acquired Aspiration pneumonia Severe sepsis Unasyn and vancomycin iv f/u blood and sputum cultures u/a negative for acute infection daily cbc this does not appear to be a primary meningoencephalitis. if imaging suggests infectious source or no improvement in mental status in 24-48h, will pursue LP, but for now, risk/benefit is in favor of conservative management and observing. non-infectious causes of encephalopathy are favored. Endo: SSI Prophylaxis: Lovenox SCDs Pepcid Lines: piv lopez Dispo: admit to ICU. Critically ill. Critical care time: 66 minutes, exclusive of separately billable procedures. specifically, managed vent settings, discussion with family, gathering patient history, interpreting laboratory studies, discussions with consultants. H&P: Quality - VTE Deep Vein Thrombosis/Pulmonary Embolism Present on Admission: No
[2017-11-28 18:16] LABS: Amphetamine Urine With Conf Neg (Neg); Benzodiazepine Urine With Conf Pos (Neg)
[2017-11-28] MEDS: Ampicillin/Sulbactam Inj 3 GM in Sodium Chloride 0.9% Inj 100 ML IV.SIG SCH ×2 (18:43→23:47)
[2017-11-28] MEDS: Chlorhexidine 0.12% Oral Kit 15 ML UDC OROPHARYNG SCH (20:18)
[2017-11-28] MEDS: Polyethylene Glycol 3350 17 GM Packet PO SCH (20:19)
[2017-11-28] MEDS: Senna/Docusate Sodium 8.6/50 MG Tablet PO SCH (20:20)
[2017-11-28] MEDS ORDERED: Famotidine PF Inj 20 MG/2 ML Vial IV.PUSH SCH (21:00)
[2017-11-28 21:18] LABS: Amphetamine Urine With Conf Neg (Neg); Barbiturate Urine With Conf Neg (Neg)
[2017-11-28 21:20] LABS: Benzodiazepine Urine With Conf Pos (Neg)
[2017-11-28] MEDS: Acetaminophen 325 MG Tablet PO PRN (21:43)
--- NOTE | 2017-11-28 22:01 | ECG ---
Date Performed: 11/28/2017 Time Performed: 13:48:50 PTAGE: 62 years EKG: SINUS TACHYCARDIA LOW QRS VOLTAGE IN PRECORDIAL LEADS ABNORMAL RHYTHM ECG NO PREVIOUS TRACING DOCTOR: Uday Daugherty Interpretating Date/Time 11/28/2017 21:58:07
[2017-11-29] MEDS: Oral Hygiene Kit OROPHARYNG SCH ×4 (00:04→16:21)
[2017-11-29] MEDS ORDERED: Chlorhexidine Gluconate 2% 1 Pack (2 Cloths) TOPICAL PRN (04:00)
[2017-11-29] MEDS: Chlorhexidine Gluconate 2% 1 Pack (2 Cloths) TOPICAL SCH (05:21)
[2017-11-29 05:22] LABS: ABG PCO2 38 mmHg (38-42); ABG PO2 79 mmHg (61-120)
[2017-11-29] MEDS: Ampicillin/Sulbactam Inj 3 GM in Sodium Chloride 0.9% Inj 100 ML IV.SIG SCH ×3 (05:29→16:22)
--- NOTE | 2017-11-29 06:40 | P.PNCC ---
Subjective Subjective Remarks/Hospital Course: Hospital Course: 62yF with history of chronic pain on multiple psychotropic drugs including percocet, found unresponsive by her sister at home. Per her sister, she usually sleeps a lot, and she was last seen normal at 1300 on 11/27. Today after almost 23 hours, she went to wake her sister and found her unresponsive. On further investigation tonight, her sister found an empty bottle which was labeled "oxycodone/APAP". brought in by EMS. GCS 3. pupils pinpoint. no improvement with [address] head, chest negative for acute disease. ? aspiration pneumonia. unknown other history. ROS unobtainable. slightly elevated Cr, wbc elevated with left shift, lactate rising. afebrile, blood pressure stable. tachycardic. intubated in the ER for persistent encephalopathy. no additional information available. Subjective: 11/29: more awake, but still very somnolent. following commands x 4. lactate has cleared. hemodynamics improving. Objective Vital Signs / I&O: Vital Signs 11/28/17 12:35 11/28/17 12:44 11/28/17 13:44 Temperature 37.4 C Pulse Rate 124 H 114 H Respiratory Rate 24 18 Blood Pressure 133/83 107/70 Pulse Oximetry 93 L 94 L 95 11/28/17 13:58 11/28/17 14:09 11/28/17 14:24 Temperature Pulse Rate 114 H 118 H Respiratory Rate 18 12 16 Blood Pressure 111/75 114/74 Pulse Oximetry 97 11/28/17 15:51 11/28/17 15:52 11/28/17 15:58 Temperature 36.6 C Pulse Rate 115 H 118 H Respiratory Rate 16 32 H Blood Pressure 127/78 Pulse Oximetry 95 11/28/17 16:05 11/28/17 16:38 11/28/17 17:23 Temperature Pulse Rate 116 H 116 H Respiratory Rate 15 0 L 14 Blood Pressure 113/73 118/81 Pulse Oximetry 90 L 98 98 11/28/17 19:30 11/28/17 20:00 11/28/17 21:10 Temperature 39.2 C H Pulse Rate 104 H 106 H Respiratory Rate 14 14 14 Blood Pressure 140/88 Pulse Oximetry 99 100 11/28/17 22:12 11/29/17 00:00 09/16/18 00:59 Temperature 37.7 C H Pulse Rate 105 H Respiratory Rate 14 16 14 Blood Pressure 127/73 Pulse Oximetry 98 99 99 11/29/17 03:29 11/29/17 04:00 11/29/17 04:16 Temperature 37.7 C H Pulse Rate 102 H 103 H Respiratory Rate 15 14 15 Blood Pressure 123/76 Pulse Oximetry 98 98 Intake & Output 11/28/17 11/28/17 11/29/17 06:59 18:59 06:59 Intake Total 3350 / 3350 200 / 200 Output Total 850 / 850 435 / 435 Balance 2500 / 2500 -235 / -235 Weight 86.5 kg Intake: IV 3350 / 3350 200 / 200 Unasyn Inj 3 GM In NS Inj 100 200 / 200 ML @ 200 mls/hr IV.SIG Q6H [facility] Rx#:[id number] Maxipime Inj 2,000 MG In NS Inj 100 / 100 100 ML @ 200 mls/hr IV.SIG ONCE ONE Rx#:[id number] NS Inj 1,000 ML @ Wide Open IV. 3000 / 3000 SIG .Q0M [facility] Rx#:[id number] Vancomycin Inj 1,000 MG In NS 250 / 250 Inj 250 ML @ 250 mls/hr IV.SIG ONCE ONE Rx#:[id number] Oral 0 / 0 Output: Urine Amount (Catheter) 850 / 850 435 / 435 Indwelling Urethral Catheter 850 / 850 435 / 435 Other: # Bowel Movements 0 Weight On Admission 104.326 kg Result Diagrams: 11/28/17 12:53 11/28/17 12:53 Objective Remarks: gen: middle-aged appearing female, lying in bed, intubated, arousable but somnolent heent: nc. at. pupils are 3mm, equal, reactive. mucous membranes are moist. neck: no jvd. trachea midline. chest: equal chest rise. prvc. fio2 40%. spo2 100%. peep 5. cv: tachycardic rate of 103, regular rhythm. sinus. abd: soft, nontender, nondistended. no guarding. extr: warm, well-perfused. distal pulses 2+. no edema : lopez in place with dark yellow urine. Neuro: RASS -2. arouses to voice. weakly follows commands. still very somnolent , even on sedation hold. Assessment and Plan - Assessment and Plan Plan: Assessment: 62yF with acute encephalopathy. Most likely toxic encephalopathy secondary to medication overdose. Will work towards weaning to extubate today if her mental status continues to improve. Neuro: Severe Acute encephalopathy- most likely toxic secondary to medication overdose frequent neuro checks avoid long-acting sedatives propofol for goal RASS -2 CT head negative for acute disease MRI brain EEG Resp: Acute hypoxic and hypercarbic respiratory failure Community Acquired Aspiration Pneumonia vent bundle hob elevated nebs wean fio2 for goal spo2 > 90% now that mental status is improving, will wean to extubate if continues to improve. start daily SBTs. CV: Elevated Troponin Sinus tachycardia unclear significance of elevated troponin. most likely type II NSTEMI secondary to demand ischemia or poor renal clearance from GRACIELA. no history to suggest acute coronary syndrome will not heparinize. trend troponins tachycardia likely secondary to SIRS response Renal: Acute kidney injury continue lopez frequent uop checks daily Cr FEN/GI: Acute intravascular volume depletion- improving. Acute anion-gap metabolic acidosis- resolved Lactic Acidosis- resolving acidosis likely secondary to combination of dehydration and poor tissue perfusion during time which she was obtunded and unresponsive. trend lactates daily bmp, mg, phos trend lactates mivf NPO: if does not extubate today, will need to start enteral feeding. OG to [facility] ICU Electrolyte protocol Heme/ID: Community Acquired Aspiration pneumonia Severe sepsis Unasyn and vancomycin iv f/u blood and sputum cultures u/a negative for acute infection daily cbc this does not appear to be a primary meningoencephalitis. if imaging suggests infectious source or no improvement in mental status in 24-48h, will pursue LP, but for now, risk/benefit is in favor of conservative management and observing. non-infectious causes of encephalopathy are favored. Endo: SSI Prophylaxis: Lovenox SCDs Pepcid Lines: piv lopez Dispo: remain in ICU. critically ill and off pathway.
[2017-11-29 06:57] LABS: Potassium 3.6 meq/L (3.5-5.1)
[2017-11-29 07:00] LABS: Calcium 7.7 mg/dL (8.5-10.1); Carbon Dioxide 23.9 meq/L (21.0-32.0); Magnesium 1.8 mg/dL (1.5-2.5)
[2017-11-29 07:11] LABS: Baso # (Auto) 0.1 th/mm3 (0.0-0.2); Baso % (Auto) 1.2 % (0.0-2.0); Eos % (Auto) 0.1 % (0.0-4.0); Lymph # (Auto) 1.3 th/mm3 (1.0-4.8); Lymph % (Auto) 14.4 % (9.0-44.0); Mean Corpuscular HGB Conc 34.2 % (32.0-36.0); Mean Corpuscular Hemoglobin 30.5 pg (27.0-34.0); Mean Corpuscular Volume 89.1 fL (80.0-100.0); Mean Platelet Volume 8.6 fL (7.0-11.0); Mono # (Auto) 0.5 th/mm3 (0.0-0.9); Mono % (Auto) 5.5 % (0.0-8.0); Neut # (Auto) 7.2 th/mm3 (1.8-7.7); Neut % (Auto) 78.8 % (16.0-70.0); Phosphorus 2.3 mg/dL (2.5-4.9); Platelet Count 295 th/mm3 (150-450); Red Blood Count 3.82 mil/mm3 (4.00-5.30); Red Cell Distribution Width 14.8 % (11.6-17.2); Troponin I 0.27 ng/mL (0.02-0.05); White Blood Count 9.1 th/mm3 (4.0-11.0)
[2017-11-29] MEDS ORDERED: Metoprolol Inj 5 MG/5 ML Vial IV.PUSH ONE (07:15)
[2017-11-29 07:16] LABS: Hemoglobin 11.6 gm/dL (11.6-15.3)
[2017-11-29] MEDS: Chlorhexidine 0.12% Oral Kit 15 ML UDC OROPHARYNG SCH ×2 (08:07→21:54)
[2017-11-29] MEDS: Senna/Docusate Sodium 8.6/50 MG Tablet PO SCH ×2 (08:07→21:53)
[2017-11-29] MEDS: Famotidine PF Inj 20 MG/2 ML Vial IV.PUSH SCH ×2 (08:07→21:53)
[2017-11-29] MEDS: Polyethylene Glycol 3350 17 GM Packet PO SCH ×2 (08:08→21:54)
[2017-11-29] MEDS ORDERED: Vancomycin Inj 1,500 MG in Sodium Chlor 0.9% Inj 500 ML IV.SIG SCH (09:00)
[2017-11-29] MEDS: Enoxaparin Inj 40 MG/0.4 ML Syringe SQ SCH (14:08)
[2017-11-29] MEDS ORDERED: Haloperidol Inj 5 MG/ML Ampul IV.PUSH STA (17:04)
[2017-11-30] MEDS: Ampicillin/Sulbactam Inj 3 GM in Sodium Chloride 0.9% Inj 100 ML IV.SIG SCH ×2 (01:05→05:03)
[2017-11-30] MEDS: Oral Hygiene Kit OROPHARYNG SCH ×4 (01:06→17:02)
[2017-11-30] MEDS ORDERED: Vancomycin Inj 1,500 MG in Sodium Chlor 0.9% Inj 500 ML IV.SIG SCH (03:00)
[2017-11-30] MEDS: Chlorhexidine Gluconate 2% 1 Pack (2 Cloths) TOPICAL SCH (05:03)
[2017-11-30 05:25] LABS: Baso % (Auto) 0.4 % (0.0-2.0); Eos % (Auto) 0.2 % (0.0-4.0); Hematocrit 30.9 % (35.0-46.0); Hemoglobin 9.9 gm/dL (11.6-15.3); Lymph # (Auto) 0.9 th/mm3 (1.0-4.8); Lymph % (Auto) 10.6 % (9.0-44.0); Mean Corpuscular HGB Conc 32.2 % (32.0-36.0); Mean Corpuscular Hemoglobin 28.8 pg (27.0-34.0); Mean Corpuscular Volume 89.5 fL (80.0-100.0); Mean Platelet Volume 8.1 fL (7.0-11.0); Mono # (Auto) 0.5 th/mm3 (0.0-0.9); Mono % (Auto) 6.1 % (0.0-8.0); Neut # (Auto) 7.3 th/mm3 (1.8-7.7); Neut % (Auto) 82.7 % (16.0-70.0); Platelet Count 266 th/mm3 (150-450); Red Blood Count 3.45 mil/mm3 (4.00-5.30); Red Cell Distribution Width 14.4 % (11.6-17.2); White Blood Count 8.7 th/mm3 (4.0-11.0)
[2017-11-30 05:30] LABS: ABG Base Excess 3.3 mmol/L (-2-2); ABG PCO2 38 mmHg (38-42); ABG PO2 70 mmHg (61-120)
[2017-11-30 05:41] LABS: Anion Gap 10 meq/L (5-15); Blood Urea Nitrogen 6 mg/dL (7-18); Calcium 8.2 mg/dL (8.5-10.1); Carbon Dioxide 25.6 meq/L (21.0-32.0); Chloride 107 meq/L (98-107); Glomerular Filtration Rate Greater Than 89 mL/min (>89); Magnesium 1.9 mg/dL (1.5-2.5); Phosphorus 1.5 mg/dL (2.5-4.9); Sodium 143 meq/L (136-145)
[2017-11-30 05:46] LABS: Glucose,Random 93 mg/dL (74-106)
[2017-11-30 05:49] LABS: Potassium 2.9 meq/L (3.5-5.1)
[2017-11-30] MEDS: Chlorhexidine 0.12% Oral Kit 15 ML UDC OROPHARYNG SCH (08:28)
--- NOTE | 2017-11-30 09:29 | P.CONPSY ---
Provisional Diagnosis Admission Date: November 28, 2017 14:24 [place] I.: Adjustment disorder with depressed mood History of Present Illness Service: Psychiatry Consult date: 11/30/17 Reason for Consult: Benzodiazepine overdose Primary Care Provider: UNKNOWN Chief Complaint: altered mental status History of Present Illness: Patient [age]-year-old woman, single, domiciled with sister, retired, no children, past psychiatric history of anxiety disorder, no previous psychiatric admissions, no previous suicide attempt or self-injurious behavior no current outpatient mental health provider, past medical history significant for diabetes, migraines, fibromyalgia, chronic back pain, who was admitted due to recent benzodiazepine overdose patient was found unresponsive by sister medication which psychiatry was consulted for suspected suicide attempt. Patient was found lying hospital bed in 2 point restraints and received ETO last evening due to agitation. Patient continues to be alert and oriented 2, recently extubated yesterday but able to interact and engage in interview today. Patient states she feels "weird" stating that she is at home but that he had told that she has at [place]. Patient mentions not recalling events that led to her hospitalization but states "they told me to take pills, I do not know which ones". Patient states this is the first time she had that this been the first in her family to attempt to end her life. She states that she was recently turned down for social security disability back in October and states that she had been declined in the past but does not know why she felt overwhelmed by this recently. Patient states "I should not have done it", and states that she has no idea when she took the pills. Patient recalls talking to her sister prior to this event and got to her bedroom and "took pills". Patient states that she is not ready events after that. Patient reports having poor sleep chronically, but no change in appetite energy concentration states that her mood has been "depressed" recently denying any suicide ideation prior to this overdose. Patient denies feeling helpless or hopeless denying perceptual services or delusions. Denies rest of psychiatric review of systems. Patient states currently that she feels "stupid" reports having overdosed, denying any suicide ideations at this time, denies any perceptional services or delusions at this time. Patient continues to have fluctuations of orientation during interview, continues to state that she is at home. Family psychiatric history: Great grandmother with treatment with ECT, reports history of bipolar disorder with no suicides in the family Past psychiatric history: Previous psychiatric diagnoses of anxiety disorder, no previous psychiatric admissions, suicide attempts of interest behavior, no history of abuse. Patient with no outpatient mental health provider. Patient currently on Cymbalta, Xanax in the past. Substance use history: Alcohol use "occasionally" last time use was in October, denies any drug use. Past medical history: TMJ, IVDA, migraines, fibromyalgia, chronic back pain Allergies: Dilaudid, diazepam hydromorphone, meperidine Social history: Single, domiciled sister, retired, no children, no background, no asked to firearms, denies any legal history. Review of Systems All other systems reviewed negative except as stated in HPI REPLACED BY [facility] - History History Provided By: Medical Record - Medical / Surgical Hx Neg / Unobtainable Medical Problems Denied: Unable to Obtain - Medical History Medical History: Medical History (Last Reviewed 11/29/17 @ 16:35 by Tyrese Leslie) Bursitis Gastric ulcer IBS (irritable bowel syndrome) Migraines Rotator cuff (capsule) sprain Rotator cuff arthropathy of right shoulder Sinusitis TMJ (dislocation of temporomandibular joint) - Surgical History Surgical History: Surgical History (Last Reviewed 11/29/17 @ 16:36 by yTrese Leslie) History of ear, nose, and throat (ENT) surgery History of surgery on arm - Tobacco History Smoking Status: Unknown if ever smoked - Alcohol History How Often Do You Have a Drink Containing Alcohol: Unable to Obtain - Substance Use History Substance History: Unable to Obtain - Travel History Recent Travel in the [place] Within the Last 8 Weeks: No Recent Travel Out of the Country Within the Last 8 Weeks: No - Immunization History Tetanus Immunization: Unable to Assess Hx Influenza Vaccine This Season: Unable to Assess Medications and Allergies Active Medications: Active Medications Acetaminophen (Tylenol) 650 mg PO Q4H PRN PRN Reason: FEVER > 101 Last Admin: 11/28/17 21:43 Dose: 650 mg Albuterol (Duoneb Neb (Prn)) 1 ampul NEB Q2HR NEB PRN PRN Reason: WHEEZING Bisacodyl (Dulcolax Supp) 10 mg RECTAL DAILY PRN PRN Reason: if no BM in last 24h Chlorhexidine Gluconate (Chlorhexidine 2% Cloth) 3 pack TOPICAL DAILY@0400 [facility] Stop: 12/04/17 03:59 Last Admin: 11/30/17 05:03 Dose: 3 pack Chlorhexidine Gluconate (Chlorhexidine 2% Cloth) 3 pack TOPICAL DAILY@0400 PRN PRN Reason: Extra cloth needed Stop: 12/04/17 03:59 Chlorhexidine Gluconate (Peridex 0.12% Oral Kit) 15 ml OROPHARYNG BID@0800, 2000 [facility] Last Admin: 11/30/17 08:28 Dose: Not Given Dextrose (D50w Syringe) 50 ml IV.PUSH UNSCH PRN PRN Reason: PER HYPOGLYCEMIA PROTOCOL Enoxaparin Sodium (Lovenox Inj) 40 mg SQ Q24H [facility] Last Admin: 11/29/17 14:08 Dose: 40 mg Famotidine (Pepcid Pf Inj) 20 mg IV.PUSH Q12HR [facility] Last Admin: 11/29/17 21:53 Dose: 20 mg Glucagon (Glucagon Inj) 1 mg IM ONCE PRN PRN Reason: blood sugar < 60, no iv access Sodium Chloride (Ns Inj) 1,000 mls @ 0 mls/hr IV.SIG .Q0M [facility] Last Infusion: 11/28/17 14:01 Dose: Infused Sodium Chloride (Ns Inj) 1,000 mls @ 0 mls/hr IV.SIG .Q0M [facility] Last Infusion: 11/28/17 16:26 Dose: Infused Sodium Chloride (Ns Inj) 1,000 mls @ 0 mls/hr IV.SIG .Q0M [facility] Last Infusion: 11/28/17 16:26 Dose: Infused Magnesium Sulfate Inj 4 gm/ (Sodium Chloride) 100 mls @ 50 mls/hr IV.SIG UNSCH PRN PRN Reason: For Magnesium 0.9 - 1.1 mg/dL Magnesium Sulfate Inj 2 gm/ (Sodium Chloride) 100 mls @ 50 mls/hr IV.SIG UNSCH PRN PRN Reason: For Magnesium 1.2 - 1.6 mg/dL Potassium Chloride (Kcl 40 Meq Premix Inj) 40 meq in 100 mls @ 25 mls/hr IV.SIG Q2H PRN PRN Reason: For Potassium 2.8 - 3.2 mEq/L Potassium Chloride (Kcl 20 Meq Premix Inj) 20 meq in 100 mls @ 50 mls/hr IV.SIG Q2H PRN PRN Reason: For Potassium 3.3 - 3.5 mEq/L Potassium Chloride (Kcl 40 Meq Premix Inj) 40 meq in 100 mls @ 25 mls/hr IV.SIG UNSCH PRN PRN Reason: For Potassium 3.3 - 3.5 mEq/L Potassium Chloride (Kcl 20 Meq Premix Inj) 20 meq in 100 mls @ 50 mls/hr IV.SIG Q2H PRN PRN Reason: For Potassium 2.8 - 3.2 mEq/L Potassium Phosphate 30 mmol/ (Sodium Chloride) 260 mls @ 42 mls/hr IV.SIG UNSCH PRN PRN Reason: SEE LABEL COMMENTS Last Admin: 11/30/17 06:39 Dose: 42 mls/hr Propofol (Diprivan 1000 Mg/100 Ml Inj) 1,000 mg in 100 mls @ 3.13 mls/hr IV.CONT TITRATE PRN; Protocol PRN Reason: Per Protocol Last Titration: 11/29/17 05:54 Dose: 0 mcg/kg/min, 0 mls/hr Sodium Phosphate 30 mmol/ (Sodium Chloride) 260 mls @ 42 mls/hr IV.SIG UNSCH PRN PRN Reason: For Phosphorus < 2.5 mg/dL Last Infusion: 11/29/17 15:05 Dose: Infused Ampicillin Sodium/Sulbactam (Sodium 3 gm/ Sodium Chloride) 100 mls @ 200 mls/ hr IV.SIG Q6H RUDY Last Admin: 11/30/17 05:03 Dose: 200 mls/hr Vancomycin HCl 1,500 mg/ (Sodium Chloride) 515 mls @ 250 mls/hr IV.SIG Q18H RUDY Last Admin: 11/30/17 03:55 Dose: 250 mls/hr Insulin Human Regular (Novolin R Inj) 1 units SQ Q6HR RUYD; Protocol Last Admin: 11/30/17 06:37 Dose: Not Given Lactulose (Lactulose Liq) 30 ml PO BID RUDY Last Admin: 11/29/17 21:53 Dose: 30 ml Magnesium Oxide (Mag-Ox) 800 mg PO UNSCH PRN PRN Reason: For Magnesium 1.2 - 1.6 mg/dL Miscellaneous Information ([facility] Ordered Lab Info) 0 each OTHER ONCE ONE Stop: 12/01/17 14:46 Ondansetron HCl (Zofran Inj) 4 mg IV.PUSH Q6H PRN PRN Reason: NAUSEA OR VOMITING Pharmacy Profile Note (Vancomycin Consult Pharmacy) 1 each OTHER UNSCH PRN PRN Reason: Pharmacy to dose Polyethylene Glycol (Miralax) 17 gm PO BID [facility] Last Admin: 11/29/17 21:54 Dose: 17 gm Potassium Bicarb/Potassium Chloride (K-Lyte Cl Eff) 50 meq PO UNSCH PRN PRN Reason: For Potassium 3.3 - 3.5 mEq/L Last Admin: 11/30/17 06:38 Dose: 50 meq Potassium Phosphate (K-Phos Original) 2,000 mg PO Q4H PRN PRN Reason: Phosphorus Less Than 2.5 mg/dL Potassium Phosphate (K-Phos Original) 2,000 mg PO UNSCH PRN PRN Reason: SEE LABEL COMMENTS Senna/Docusate Sodium (Carmen-Colace) 1 tab PO BID [facility] Last Admin: 11/29/17 21:53 Dose: 1 tab Sodium Chloride (Ns Flush) 2 ml IV.FLUSH UNSCH PRN PRN Reason: FLUSH AFTER USING IV ACCESS Allergies Allergy/AdvReac Type Severity Reaction Status Date / Time diazepam [From Valium] Allergy Anxiety Verified 11/28/17 14:55 hydromorphone [From Dilaudid] Allergy Hallucinati Verified 11/28/17 14:57 ons meperidine [From Demerol] Allergy Nausea/Vomi Verified 11/28/17 14:57 ting propoxyphene [From Darvon] Allergy Nausea/Vomi Verified 11/28/17 14:57 ting Home Medications Medication Instructions Recorded Confirmed Type dexlansoprazole [Dexilant] 60 mg PO DAILY 11/28/17 11/28/17 History duloxetine 60 mg PO DAILY 11/28/17 11/28/17 History metaxalone [Skelaxin] 800 mg PO TID 11/28/17 11/28/17 History ondansetron 8 mg PO TID PRN 11/28/17 11/28/17 History oxycodone-acetaminophen [Percocet] 1 tab PO Q4H PRN 11/28/17 11/28/17 History temazepam [Restoril] 11/28/17 History thyroid (pork) [[place] Thyroid] 15 mg PO DAILY 11/28/17 11/28/17 History zaleplon 10 mg PO DAILY 11/28/17 11/28/17 History Exam Vital signs: Vital Signs 11/29/17 09:38 11/29/17 09:50 11/29/17 09:53 Temperature Pulse Rate 102 H 107 H Respiratory Rate 25 H 25 H 26 H Blood Pressure 130/75 Pulse Oximetry 98 11/29/17 10:00 11/29/17 11:00 11/29/17 12:00 Temperature 99.2 F Pulse Rate 102 H 108 H 110 H Respiratory Rate 22 18 17 Blood Pressure 124/81 135/75 130/84 Pulse Oximetry 99 100 97 11/29/17 13:00 11/29/17 14:00 11/29/17 14:15 Temperature 98.4 F Pulse Rate 104 H 110 H Respiratory Rate 21 22 Blood Pressure 124/73 119/72 Pulse Oximetry 98 97 11/29/17 15:00 11/29/17 16:00 11/29/17 19:36 Temperature 99.5 F Pulse Rate 102 H 108 H Respiratory Rate 21 18 Blood Pressure 119/72 119/72 Pulse Oximetry 93 L 96 97 11/29/17 19:55 11/29/17 20:00 11/30/17 00:00 Temperature 98.8 F 98.8 F Pulse Rate 87 92 H 108 H Respiratory Rate 18 22 Blood Pressure 125/72 133/63 Pulse Oximetry 97 92 L 94 L 11/30/17 04:00 Temperature 98.1 F Pulse Rate 68 Respiratory Rate 16 Blood Pressure 138/68 Pulse Oximetry 96 Intake & Output 11/29/17 11/30/17 11/30/17 18:59 06:59 18:59 Intake Total 975 / 975 820 / 820 Output Total 350 / 350 Balance 625 / 625 820 / 820 Weight 90 kg Intake: IV 975 / 975 100 / 100 Unasyn Inj 3 GM In NS Inj 100 200 / 200 100 / 100 ML @ 200 mls/hr IV.SIG Q6H RUDY Rx#:[id number] Sodium Phosphate Inj 30 MMOL In 260 / 260 NS Inj 250 ML @ 42 mls/hr IV. SIG UNSCH PRN Rx#:[id number] Vancomycin Inj 1,500 MG In NS 515 / 515 Inj 500 ML @ 250 mls/hr IV.SIG Q24H RUDY Rx#:[id number] Oral 720 / 720 Output: Urine Amount (Catheter) 350 / 350 Indwelling Urethral Catheter 350 / 350 Other: # Voids 3 - Constitutional no acute distress, cooperative Mental Status Examination Appearance: Appropriate, Other (in two point restraints) Consciousness: Alert Orientation: Person, Place Speech: Other (low volume) Language: Adequate Fund of Knowledge: Inadequate Attention and Concentration: Inadequate Memory: Impaired (surrounding recent events) Mood: Sad Affect: Sad Thought Process & Associations: Linear Thought Content: Hallucinations Hallucination Type: Visual (denies at this time) Delusion Type: None Suicidal Ideation: Yes Suicidal Plan: Yes Suicidal Intention: Yes Homicidal Ideation: No Homicidal Plan: No Homicidal Intention: No Insight: Poor Judgment: Poor Assessment and Plan - Assessment (1) Adjustment disorder with depressed mood Code(s): F43.21 - Adjustment disorder with depressed mood Status: Acute - Plan Plan: Estimated LOS: [] days Patient is 62-year-old woman with no formal past psychiatric history, previous psychiatric admissions, suicide attempts of interest behavior, who was admitted recently after benzodiazepine overdose, recently extubated currently continues with fluctuations of orientation but did admit to recent overdose as suicide attempt. Patient will be placed under [place] act until transferred to the inpatient psychiatry unit which patient will continue psychiatric evaluation and management there. Patient to continue recommendations per prior medical team. Patient to be transferred to medical/psychiatry unit once medically cleared for psychiatric admission. Place patient one-to-one observation for safety. Consult appreciated. Justification for Continued Inpatient Stay: AT risk for further decompensation at lower level of care.
--- NOTE | 2017-11-30 09:41 | P.PN ---
Subjective Interval history: 62-year-old female who is seen today to assume medical management from critical care team. Apparently the patient has history of chronic pain and on multiple psychotic medications and was found unresponsive at her home. On presentation she was not able to give me information she was intubated for airway support and management. Patient was maintained on ventilation and successfully extubated yesterday 11/29/17. During that time patient was still with significant change in mentation. Is unknown if the patient overdosed on benzodiazepine, Skelaxin. She was on oxycodone however her opiate level was normal. Upon seeing the patient today she appears to be more alert. She is orientated to person, place, year. Psychiatry was consulted who evaluated the patient today and indicated the patient is appropriate for psychiatric admission. Physical Exam Vital signs: Vital Signs 11/29/17 09:50 11/29/17 09:53 11/29/17 10:00 Temperature 99.2 F Pulse Rate 107 H 102 H Respiratory Rate 25 H 26 H 22 Blood Pressure 124/81 Pulse Oximetry 99 11/29/17 11:00 11/29/17 12:00 11/29/17 13:00 Temperature Pulse Rate 108 H 110 H 104 H Respiratory Rate 18 17 21 Blood Pressure 135/75 130/84 124/73 Pulse Oximetry 100 97 98 11/29/17 14:00 11/29/17 14:15 11/29/17 15:00 Temperature 98.4 F Pulse Rate 110 H 102 H Respiratory Rate 22 21 Blood Pressure 119/72 119/72 Pulse Oximetry 97 93 L 11/29/17 16:00 11/29/17 19:36 11/29/17 19:55 Temperature 99.5 F Pulse Rate 108 H 87 Respiratory Rate 18 Blood Pressure 119/72 Pulse Oximetry 96 97 97 11/29/17 20:00 11/30/17 00:00 11/30/17 04:00 Temperature 98.8 F 98.8 F 98.1 F Pulse Rate 92 H 108 H 68 Respiratory Rate 18 22 16 Blood Pressure 125/72 133/63 138/68 Pulse Oximetry 92 L 94 L 96 Intake & Output 11/29/17 11/30/17 11/30/17 18:59 06:59 18:59 Intake Total 975 / 975 820 / 820 Output Total 350 / 350 Balance 625 / 625 820 / 820 Weight 90 kg Intake: IV 975 / 975 100 / 100 Unasyn Inj 3 GM In NS Inj 100 200 / 200 100 / 100 ML @ 200 mls/hr IV.SIG Q6H RUDY Rx#:[id number] Sodium Phosphate Inj 30 MMOL In 260 / 260 NS Inj 250 ML @ 42 mls/hr IV. SIG UNSCH PRN Rx#:[id number] Vancomycin Inj 1,500 MG In NS 515 / 515 Inj 500 ML @ 250 mls/hr IV.SIG Q24H RUDY Rx#:[id number] Oral 720 / 720 Output: Urine Amount (Catheter) 350 / 350 Indwelling Urethral Catheter 350 / 350 Other: # Voids 3 Narrative: GENERAL: Well-developed, well-nourished, in no acute distress. alert and orientated HEENT: Head is normocephalic without any lesions or masses noted. Facial features are symmetric. Eyes: Extraocular muscles are intact. Conjunctivae were clear. NECK: Supple without any masses. Trachea midline no deviation. No JVD, CARDIAC: Regular rhythm, regular rate. S1/S2 are heard. No murmurs gallops or rubs. LUNGS: Clear to auscultation bilaterally. No wheeze, rhonchi or rales. No use of accessory muscles on inspiration or expiration. ABDOMEN: Soft, nontender. Nondistended. Bowel sounds heard in all 4 quadrants. No organomegaly or masses. Negative rebound, negative guarding EXTREMITIES: No edema, pulses are equal bilaterally. No cyanosis or clubbing NEUROLOGY: Mood and affect appear appropriate. Cranial nerves II through XII grossly intact. Moving all extremities, speech is clear - Urinary Catheter Management Indwelling Urethral Catheter Cath placed during this visit: yes Reason for continuing: Terminally ill/Comfort care Insertion date: 11/28/17 Results - Labs CBC & Chem 7: 11/30/17 04:58 11/30/17 04:58 Laboratory Results - last 24 hr 11/29/17 11/29/17 11/29/17 12:17 14:00 14:00 CBC w Diff WBC RBC Hgb Hct MCV MCH MCHC RDW Plt Count MPV Neut % (Auto) Lymph % (Auto) [place] % (Auto) Eos % (Auto) Baso % (Auto) Neut # (Auto) Lymph # (Auto) [place] # (Auto) Eos # (Auto) Baso # (Auto) WBC Differential Differential Comment Puncture Site Patient Temperature O2 Saturation ABG pH ABG pCO2 ABG pO2 ABG HCO3 ABG O2 Content ABG Base Excess ABG Methemoglobin Jared Test Hemoglobin Carboxyhemoglobin O2 Delivery Device Liter Flow Critical Value Sodium Potassium Chloride Carbon Dioxide Anion Gap BUN Creatinine Estimated GFR POC Glucose 95 Random Glucose Lactic Acid 1.2 Calcium Phosphorus Magnesium Troponin I 0.15 H D 11/29/17 11/30/17 11/30/17 17:43 01:03 04:58 CBC w Diff Auto diff final WBC 8.7 RBC 3.45 L Hgb 9.9 L Hct 30.9 L MCV 89.5 MCH 28.8 MCHC 32.2 RDW 14.4 Plt Count 266 MPV 8.1 Neut % (Auto) 82.7 H Lymph % (Auto) 10.6 Jefferson % (Auto) 6.1 Eos % (Auto) 0.2 Baso % (Auto) 0.4 Neut # (Auto) 7.3 Lymph # (Auto) 0.9 L [place] # (Auto) 0.5 Eos # (Auto) 0.0 Baso # (Auto) 0.0 WBC Differential . Differential Comment . Puncture Site Patient Temperature O2 Saturation ABG pH ABG pCO2 ABG pO2 ABG HCO3 ABG O2 Content ABG Base Excess ABG Methemoglobin Jared Test Hemoglobin Carboxyhemoglobin O2 Delivery Device Liter Flow Critical Value Sodium Potassium Chloride Carbon Dioxide Anion Gap BUN Creatinine Estimated GFR POC Glucose 93 90 Random Glucose Lactic Acid Calcium Phosphorus Magnesium Troponin I 11/30/17 11/30/17 11/30/17 04:58 05:20 05:36 CBC w Diff WBC RBC Hgb Hct MCV MCH MCHC RDW Plt Count MPV Neut % (Auto) Lymph % (Auto) [place] % (Auto) Eos % (Auto) Baso % (Auto) Neut # (Auto) Lymph # (Auto) [place] # (Auto) Eos # (Auto) Baso # (Auto) WBC Differential Differential Comment Puncture Site Right radial Patient Temperature 98.6 O2 Saturation 94 ABG pH 7.47 H ABG pCO2 38 ABG pO2 70 ABG HCO3 27 H ABG O2 Content 12.9 ABG Base Excess 3.3 H ABG Methemoglobin 0.6 Jared Test Y Hemoglobin 9.7 L Carboxyhemoglobin 1.4 O2 Delivery Device Nasal cannula Liter Flow 3.00 Critical Value No Sodium 143 Potassium 2.9 L* Chloride 107 Carbon Dioxide 25.6 Anion Gap 10 BUN 6 L Creatinine 0.53 Estimated GFR Greater than 89 POC Glucose 89 Random Glucose 93 Lactic Acid Calcium 8.2 L Phosphorus 1.5 L Magnesium 1.9 Troponin I 11/30/17 08:25 CBC w Diff WBC RBC Hgb Hct MCV MCH MCHC RDW Plt Count MPV Neut % (Auto) Lymph % (Auto) [place] % (Auto) Eos % (Auto) Baso % (Auto) Neut # (Auto) Lymph # (Auto) [place] # (Auto) Eos # (Auto) Baso # (Auto) WBC Differential Differential Comment Puncture Site Patient Temperature O2 Saturation ABG pH ABG pCO2 ABG pO2 ABG HCO3 ABG O2 Content ABG Base Excess ABG Methemoglobin Jared Test Hemoglobin Carboxyhemoglobin O2 Delivery Device Liter Flow Critical Value Sodium Potassium Chloride Carbon Dioxide Anion Gap BUN Creatinine Estimated GFR POC Glucose 94 Random Glucose Lactic Acid Calcium Phosphorus Magnesium Troponin I Microbiology 11/28/17 16:00 Sputum - Endotracheal Gram Stain - Final 11/28/17 16:00 Sputum - Endotracheal Sputum Culture - Preliminary Immature growth - reincubate 11/28/17 13:40 Blood - Peripheral Aerobic Blood Culture - Preliminary No growth in 1 day 11/28/17 13:40 Blood - Peripheral Anaerobic Blood Culture - Preliminary No growth in 1 day 11/28/17 13:50 Blood - Peripheral Aerobic Blood Culture - Preliminary No growth in 1 day 11/28/17 13:50 Blood - Peripheral Anaerobic Blood Culture - Preliminary No growth in 1 day Assessment and Plan - Plan Toxic encephalopathy secondary to drug overdose, improving -Unknown whether this is secondary to benzodiazepine, Skelaxin or other medications -CT scan was done which did not indicate any acute abnormality -Awaiting EEG -Avoid sedating medication -Psychiatry evaluated patient and recommends inpatient psychiatric management, psychiatrist indicates that patient needs to be transferred to med psych unit once medically cleared Aspiration pneumonia -Patient was on vancomycin and Unasyn, will discontinue IV antibiotics -Start Augmentin 875 mg p.o. twice daily Hypokalemia -Replaced per protocol -Continue to monitor and replete as needed Elevated troponin -Likely type II non-ST elevated myocardial infarction secondary to demand ischemia and acute kidney injury -Troponin are trending downward at this time, peaked at 0.39, now 0.08 Acute hypoxic/hypercapnic respiratory failure, resolved -Patient was intubated for airway support and successfully extubated on 11/29/17 -Continue O2 supplementation maintain O2 sats greater than 92% -Duo nebs as needed Acute kidney injury, resolved -Likely secondary to dehydration, intravascular volume depletion -Improved with IV hydration -Continue monitor renal function Lactic acidosis, resolved -Could be secondary to sepsis, pneumonia, renal failure, -Lactic acid levels trended until normal DVT prevention -Subcutaneous Lovenox
[2017-11-30] MEDS: Enoxaparin Inj 40 MG/0.4 ML Syringe SQ SCH (14:29)
[2017-11-30] MEDS: Polyethylene Glycol 3350 17 GM Packet PO SCH ×2 (14:31→21:01)
[2017-11-30] MEDS: Senna/Docusate Sodium 8.6/50 MG Tablet PO SCH ×2 (14:31→21:02)
--- NOTE | 2017-11-30 17:34 | P.DS ---
Date of admission: 11/28/17 14:24 Primary care physician: UNKNOWN Brief History from admission: 62yF with history of chronic pain on multiple psychotropic drugs including percocet, found unresponsive by her sister at home. Per her sister, she usually sleeps a lot, and she was last seen normal at 1300 on 11/27. Today after almost 23 hours, she went to wake her sister and found her unresponsive. On further investigation tonight, her sister found an empty bottle which was labeled "oxycodone/APAP". brought in by EMS. GCS 3. pupils pinpoint. no improvement with [address] head, chest negative for acute disease. ? aspiration pneumonia. unknown other history. ROS unobtainable. slightly elevated Cr, wbc elevated with left shift, lactate rising. afebrile, blood pressure stable. tachycardic. intubated in the ER for persistent encephalopathy. no additional information available. DS: Diagnosis - Discharge Diagnosis (1) Toxic encephalopathy Status: Acute (2) Intentional drug overdose Status: Acute (3) Aspiration pneumonia Status: Acute (4) Acute respiratory failure with hypoxia and hypercapnia Status: Acute (5) Acute kidney injury Status: Acute (6) Lactic acidosis Status: Acute (7) Elevated troponin Status: Acute DS: Medications - Discharge Medications Prescriptions: amoxicillin-pot clavulanate 1 tab PO Q12HR 9 Days tab DS: Summary Hospital Course: 62-year-old female who is seen today to assume medical management from critical care team. Apparently the patient has history of chronic pain and on multiple psychotic medications and was found unresponsive at her home. On presentation she was not able to give me information she was intubated for airway support and management. Patient was maintained on ventilation and successfully extubated yesterday 11/29/17. During that time patient was still with significant change in mentation. Is unknown if the patient overdosed on benzodiazepine, Skelaxin. She was on oxycodone however her opiate level was normal. Patient had workup for the altered mental status with CT of the brain which was unremarkable. Patient had EEG performed which was unremarkable. This was discussed with Dr. Steele. The patient had elevated troponin during the stay in the hospital. Which did trend up and has returned almost back to normal. Likely type II non-ST elevated myocardial infarction secondary to demand ischemia and acute kidney injury. Patient did have CT findings indicating bilateral airspace disease in the right upper lobe, scheduled no infiltrates in left upper lobe consistent with aspiration pneumonia. Patient was originally started on Unasyn and vancomycin. Patient clinically improved. Change to p.o. Augmentin for total of 10 days. Patient did have acute kidney injury secondary to drug overdose, dehydration, intravascular volume depletion. Patient was on IV fluids with resolution of kidney injury. Renal function returned to normal. Patient has clinically improved. She is alert and orientated today. Psychiatry evaluated the patient and indicates that she will be Mcarthur acted and once medically stable patient can be discharged to inpatient psych facility. We will plan discharge to psych facility at this time. - Time Spent with Patient Total time spent providing and/or coordinating discharge services: Greater than 30 minutes - Quality: VTE Deep Vein Thrombosis/Pulmonary Embolism Present on Admission: No Exam Vital signs: Vital Signs 11/29/17 19:36 11/29/17 19:55 11/29/17 20:00 Temperature 98.8 F Pulse Rate 87 92 H Respiratory Rate 18 Blood Pressure 125/72 Pulse Oximetry 97 97 92 L 11/30/17 00:00 11/30/17 04:00 11/30/17 07:00 Temperature 98.8 F 98.1 F Pulse Rate 108 H 68 Respiratory Rate 22 16 Blood Pressure 133/63 138/68 Pulse Oximetry 94 L 96 93 L 11/30/17 08:00 11/30/17 10:00 11/30/17 12:00 Temperature Pulse Rate 94 H 96 H 82 Respiratory Rate 28 H 41 H 22 Blood Pressure 122/79 138/81 136/79 Pulse Oximetry 93 L 93 L 11/30/17 13:30 Temperature Pulse Rate 88 Respiratory Rate 20 Blood Pressure 140/77 Pulse Oximetry Intake & Output 11/29/17 11/30/17 11/30/17 18:59 06:59 18:59 Intake Total 975 / 975 820 / 820 Output Total 350 / 350 Balance 625 / 625 820 / 820 Weight 90 kg Intake: IV 975 / 975 100 / 100 Unasyn Inj 3 GM In NS Inj 100 200 / 200 100 / 100 ML @ 200 mls/hr IV.SIG Q6H [facility]UD[facility] Rx#:[id number] Sodium Phosphate Inj 30 MMOL In 260 / 260 NS Inj 250 ML @ 42 mls/hr IV. SIG UNSCH PRN Rx#:[id number] Vancomycin Inj 1,500 MG In NS 515 / 515 Inj 500 ML @ 250 mls/hr IV.SIG Q24H [facility] Rx#:[id number] Oral 720 / 720 Output: Urine Amount (Catheter) 350 / 350 Indwelling Urethral Catheter 350 / 350 Other: # Voids 3 Date of Last Bowel Movement 11/30/17 Narrative: GENERAL: Well-developed, well-nourished, in no acute distress. alert and orientated HEENT: Head is normocephalic without any lesions or masses noted. Facial features are symmetric. Eyes: Extraocular muscles are intact. Conjunctivae were clear. NECK: Supple without any masses. Trachea midline no deviation. No JVD, CARDIAC: Regular rhythm, regular rate. S1/S2 are heard. No murmurs gallops or rubs. LUNGS: Clear to auscultation bilaterally. No wheeze, rhonchi or rales. No use of accessory muscles on inspiration or expiration. ABDOMEN: Soft, nontender. Nondistended. Bowel sounds heard in all 4 quadrants. No organomegaly or masses. Negative rebound, negative guarding EXTREMITIES: No edema, pulses are equal bilaterally. No cyanosis or clubbing NEUROLOGY: Mood and affect appear appropriate. Cranial nerves II through XII grossly intact. Moving all extremities, speech is clear Results Procedures completed during hospitalization: 11/28/17, intubation 11/29/17 extubation Labs on day of discharge: Labs from last 24 hours 11/30/17 11/30/17 11/30/17 17:05 16:33 11:49 CBC w Diff WBC RBC Hgb Hct MCV MCH MCHC RDW Plt Count MPV Neut % (Auto) Lymph % (Auto) Dubois % (Auto) Eos % (Auto) Baso % (Auto) Neut # (Auto) Lymph # (Auto) Dubois # (Auto) Eos # (Auto) Baso # (Auto) WBC Differential Differential Comment Puncture Site Patient Temperature O2 Saturation ABG pH ABG pCO2 ABG pO2 ABG HCO3 ABG O2 Content ABG Base Excess ABG Methemoglobin Jared Test Hemoglobin Carboxyhemoglobin O2 Delivery Device Liter Flow Critical Value Sodium Potassium Pending Chloride Carbon Dioxide Anion Gap BUN Creatinine Estimated GFR POC Glucose 102 94 Random Glucose Calcium Phosphorus Pending Magnesium Troponin I Urine Opiates Screen Ur Buprenorphine Ur Heroin Screen Urine Oxycodone Ur Methadone U Hydromorphone Confirm Urine Fentanyl Ur Barbiturates Screen Urine Gabapentin Ur Phencyclidine (PCP) Urine MDPV Ur Amphetamine Screen Ur MDMA & Metabolites U Benzodiazepines Scrn Urine Cocaine Screen U Cannabinoids Screen Ur Synth THC (K2) 11/30/17 11/30/17 11/30/17 08:25 05:36 05:20 CBC w Diff WBC RBC Hgb Hct MCV MCH MCHC RDW Plt Count MPV Neut % (Auto) Lymph % (Auto) Dubois % (Auto) Eos % (Auto) Baso % (Auto) Neut # (Auto) Lymph # (Auto) Dubois # (Auto) Eos # (Auto) Baso # (Auto) WBC Differential Differential Comment Puncture Site Right radial Patient Temperature 98.6 O2 Saturation 94 ABG pH 7.47 H ABG pCO2 38 ABG pO2 70 ABG HCO3 27 H ABG O2 Content 12.9 ABG Base Excess 3.3 H ABG Methemoglobin 0.6 Jared Test Y Hemoglobin 9.7 L Carboxyhemoglobin 1.4 O2 Delivery Device Nasal cannula Liter Flow 3.00 Critical Value No Sodium Potassium Chloride Carbon Dioxide Anion Gap BUN Creatinine Estimated GFR POC Glucose 94 89 Random Glucose Calcium Phosphorus Magnesium Troponin I Urine Opiates Screen Ur Buprenorphine Ur Heroin Screen Urine Oxycodone Ur Methadone U Hydromorphone Confirm Urine Fentanyl Ur Barbiturates Screen Urine Gabapentin Ur Phencyclidine (PCP) Urine MDPV Ur Amphetamine Screen Ur MDMA & Metabolites U Benzodiazepines Scrn Urine Cocaine Screen U Cannabinoids Screen Ur Synth THC (K2) 11/30/17 11/30/17 11/30/17 04:58 04:58 04:58 CBC w Diff Auto diff final WBC 8.7 RBC 3.45 L Hgb 9.9 L Hct 30.9 L MCV 89.5 MCH 28.8 MCHC 32.2 RDW 14.4 Plt Count 266 MPV 8.1 Neut % (Auto) 82.7 H Lymph % (Auto) 10.6 Dubois % (Auto) 6.1 Eos % (Auto) 0.2 Baso % (Auto) 0.4 Neut # (Auto) 7.3 Lymph # (Auto) 0.9 L Dubois # (Auto) 0.5 Eos # (Auto) 0.0 Baso # (Auto) 0.0 WBC Differential . Differential Comment . Puncture Site Patient Temperature O2 Saturation ABG pH ABG pCO2 ABG pO2 ABG HCO3 ABG O2 Content ABG Base Excess ABG Methemoglobin Jared Test Hemoglobin Carboxyhemoglobin O2 Delivery Device Liter Flow Critical Value Sodium 143 Potassium 2.9 L* Chloride 107 Carbon Dioxide 25.6 Anion Gap 10 BUN 6 L Creatinine 0.53 Estimated GFR Greater than 89 POC Glucose Random Glucose 93 Calcium 8.2 L Phosphorus 1.5 L Magnesium 1.9 Troponin I 0.08 H Urine Opiates Screen Ur Buprenorphine Ur Heroin Screen Urine Oxycodone Ur Methadone U Hydromorphone Confirm Urine Fentanyl Ur Barbiturates Screen Urine Gabapentin Ur Phencyclidine (PCP) Urine MDPV Ur Amphetamine Screen Ur MDMA & Metabolites U Benzodiazepines Scrn Urine Cocaine Screen U Cannabinoids Screen Ur Synth THC (K2) 11/30/17 11/29/17 11/29/17 01:03 17:43 07:00 CBC w Diff WBC RBC Hgb Hct MCV MCH MCHC RDW Plt Count MPV Neut % (Auto) Lymph % (Auto) Dubois % (Auto) Eos % (Auto) Baso % (Auto) Neut # (Auto) Lymph # (Auto) Dubois # (Auto) Eos # (Auto) Baso # (Auto) WBC Differential Differential Comment Puncture Site Patient Temperature O2 Saturation ABG pH ABG pCO2 ABG pO2 ABG HCO3 ABG O2 Content ABG Base Excess ABG Methemoglobin Jared Test Hemoglobin Carboxyhemoglobin O2 Delivery Device Liter Flow Critical Value Sodium Potassium Chloride Carbon Dioxide Anion Gap BUN Creatinine Estimated GFR POC Glucose 90 93 Random Glucose Calcium Phosphorus Magnesium Troponin I Urine Opiates Screen Cancelled Ur Buprenorphine Ur Heroin Screen Urine Oxycodone Ur Methadone U Hydromorphone Confirm Urine Fentanyl Ur Barbiturates Screen Cancelled Urine Gabapentin Ur Phencyclidine (PCP) Urine MDPV Ur Amphetamine Screen Cancelled Ur MDMA & Metabolites U Benzodiazepines Scrn Cancelled Urine Cocaine Screen Cancelled U Cannabinoids Screen Cancelled Ur Synth THC (K2) 11/28/17 13:52 CBC w Diff WBC RBC Hgb Hct MCV MCH MCHC RDW Plt Count MPV Neut % (Auto) Lymph % (Auto) Dubois % (Auto) Eos % (Auto) Baso % (Auto) Neut # (Auto) Lymph # (Auto) Dubois # (Auto) Eos # (Auto) Baso # (Auto) WBC Differential Differential Comment Puncture Site Patient Temperature O2 Saturation ABG pH ABG pCO2 ABG pO2 ABG HCO3 ABG O2 Content ABG Base Excess ABG Methemoglobin Jared Test Hemoglobin Carboxyhemoglobin O2 Delivery Device Liter Flow Critical Value Sodium Potassium Chloride Carbon Dioxide Anion Gap BUN Creatinine Estimated GFR POC Glucose Random Glucose Calcium Phosphorus Magnesium Troponin I Urine Opiates Screen Ur Buprenorphine Pending Ur Heroin Screen Pending Urine Oxycodone Pending Ur Methadone Pending U Hydromorphone Confirm Pending Urine Fentanyl Pending Ur Barbiturates Screen Urine Gabapentin Pending Ur Phencyclidine (PCP) Pending Urine MDPV Pending Ur Amphetamine Screen Ur MDMA & Metabolites Pending U Benzodiazepines Scrn Urine Cocaine Screen U Cannabinoids Screen Ur Synth THC (K2) Pending Preliminary micro results at discharge 11/28/17 13:40 Aerobic Blood Culture - Preliminary Blood - Peripheral No growth in 2 days Anaerobic Blood Culture - Preliminary No growth in 2 days 11/28/17 13:50 Aerobic Blood Culture - Preliminary Blood - Peripheral No growth in 2 days Anaerobic Blood Culture - Preliminary No growth in 2 days - Impressions ITS Impressions Chest X-Ray 11/28/17 12:44 CONCLUSION: Endotracheal tube. Mild bibasilar atelectasis versus developing infiltrates. Head CT 11/28/17 12:44 CONCLUSION: 1. Study limited by motion. 2. No gross acute intracranial abnormality. . Chest CTA 11/28/17 12:47 CONCLUSION: 1. Mildly distended and fluid-filled esophagus. 2. Bilateral airspace disease. 3. No evidence for pulmonary embolism. Abdomen X-Ray 11/28/17 16:11 CONCLUSION: Nasogastric tube in place with the tip in the distal stomach. Discharge Plan - Discharge Disposition Patient Disposition: 64 Disc To [facility] - Discharge Condition Condition: Fair - Discharge Order Discharge Orders: Discharge Order (Routine); Ordered 11/30/17 Ordered By: Corey Rico - Discharge Details Anticipated Discharge Date: 11/30/17 - Physicians Team Primary Care Provider: UNKNOWN, Attending Provider: Indira Cho Other Providers: Giovany De Jesus MD
[2017-11-30 17:41] LABS: Potassium 3.4 meq/L (3.5-5.1)
[2017-11-30 17:47] LABS: Phosphorus 2.3 mg/dL (2.5-4.9)
--- NOTE | 2017-11-30 18:55 | MG ---
cc: Tree Steele MD DATE OF STUDY: 11/29/2017 EEG RECORD NUMBER [id number]. DESCRIPTION: 6-7 Hz theta activity, 20-50 microvolts with occasional low-amplitude 1-2 Hz delta activity occurring. K-complexes and spindles appreciated suggestive of Stage II sleep. Mild sharply contoured theta left temporal region at about 22. sharp transient T5, epoch 114. Single EKG showing sinus rhythm, eye movement artifact towards the end; background mild generalized slowing. INTERPRETATION: Mild encephalopathy in sleep state. No active seizure activity. Clinical correlation. Tree Steele MD MG/ld/kd , 04:29 PM , 04:37 PM MTDD
[2017-11-30] MEDS: Acetaminophen 325 MG Tablet PO PRN (20:55)
[2017-11-30] MEDS: Amoxicillin/Clavulanate 875/125 MG Tablet PO SCH (20:57)
[2017-12-01 00:59] VITALS: TEMP 98.7
[2017-12-01] MEDS: Oral Hygiene Kit OROPHARYNG SCH ×3 (02:20→11:02)
[2017-12-01 04:38] VITALS: O2SAT 96
[2017-12-01] MEDS: Chlorhexidine Gluconate 2% 1 Pack (2 Cloths) TOPICAL SCH (05:44)
[2017-12-01] MEDS: Amoxicillin/Clavulanate 875/125 MG Tablet PO SCH (08:12)
[2017-12-01] MEDS: Senna/Docusate Sodium 8.6/50 MG Tablet PO SCH (11:02)
[2017-12-01] MEDS: Polyethylene Glycol 3350 17 GM Packet PO SCH (11:02)
--- NOTE | 2017-12-01 11:14 | P.PNIM ---
Subjective Interval history: Follow up toxic encephalopathy and aspiration pna and elevated troponin. Patient seen and examined, lying in bed comfortably, in nad. No acute events overnight. Awaiting placement in inpatient psych for [facility] Act. VSS. Afebrile. Physical Exam Vital signs: Vital Signs 11/30/17 12:00 11/30/17 13:30 11/30/17 16:00 Temperature Pulse Rate 82 88 118 H Respiratory Rate 22 20 34 H Blood Pressure 136/79 140/77 147/67 H Pulse Oximetry 93 L 11/30/17 19:00 11/30/17 19:30 11/30/17 20:00 Temperature 98.3 F Pulse Rate 112 H 104 H 90 Respiratory Rate 27 H 32 H 20 Blood Pressure 145/69 H 163/80 H 133/72 Pulse Oximetry 11/30/17 20:30 11/30/17 21:00 11/30/17 21:30 Temperature Pulse Rate 88 88 88 Respiratory Rate 17 18 15 Blood Pressure 142/81 H 137/83 135/80 Pulse Oximetry 93 L 11/30/17 22:00 11/30/17 22:30 11/30/17 23:00 Temperature Pulse Rate 96 H 74 70 Respiratory Rate 24 21 22 Blood Pressure 109/67 122/87 127/76 Pulse Oximetry 12/01/17 00:00 12/01/17 00:30 12/01/17 01:00 Temperature 98.7 F Pulse Rate 70 70 74 Respiratory Rate 16 20 17 Blood Pressure 120/73 119/75 128/77 Pulse Oximetry 12/01/17 03:00 12/01/17 04:00 12/01/17 08:09 Temperature 98.7 F Pulse Rate 76 70 Respiratory Rate 28 H 19 Blood Pressure 150/73 H 158/82 H Pulse Oximetry 96 96 Intake & Output 11/30/17 12/01/17 12/01/17 18:59 06:59 18:59 Intake Total 740 / 740 Balance 740 / 740 Intake: IV 260 / 260 Potassium Phosphate Inj 30 MMOL 260 / 260 In NS Inj 250 ML @ 42 mls/hr IV.SIG UNSCH PRN Rx#:[id number] Oral 480 / 480 Other: Date of Last Bowel Movement 11/30/17 11/30/17 # Bowel Movements 1 Narrative: GENERAL: Well-developed, well-nourished, in no acute distress. alert and orientated HEENT: Head is normocephalic without any lesions or masses noted. Facial features are symmetric. Eyes: Extraocular muscles are intact. Conjunctivae were clear. NECK: Supple without any masses. Trachea midline no deviation. No JVD, CARDIAC: Regular rhythm, regular rate. S1/S2 are heard. No murmurs gallops or rubs. LUNGS: Clear to auscultation bilaterally. No wheeze, rhonchi or rales. No use of accessory muscles on inspiration or expiration. ABDOMEN: Soft, nontender. Nondistended. Bowel sounds heard in all 4 quadrants. No organomegaly or masses. Negative rebound, negative guarding EXTREMITIES: No edema, pulses are equal bilaterally. No cyanosis or clubbing NEUROLOGY: Mood and affect appear appropriate. Cranial nerves II through XII grossly intact. Moving all extremities, speech is clear - Urinary Catheter Management Indwelling Urethral Catheter Cath placed during this visit: yes Reason for continuing: Terminally ill/Comfort care Insertion date: 11/28/17 Results - Labs CBC & Chem 7: 11/30/17 04:58 11/30/17 17:05 Laboratory Results - last 24 hr 11/29/17 11/30/17 11/30/17 07:00 11:49 16:33 Potassium POC Glucose 94 102 Phosphorus Urine Opiates Screen Cancelled Ur Barbiturates Screen Cancelled Ur Amphetamine Screen Cancelled U Benzodiazepines Scrn Cancelled Urine Cocaine Screen Cancelled U Cannabinoids Screen Cancelled 11/30/17 12/01/17 12/01/17 17:05 02:32 06:51 Potassium 3.4 L POC Glucose 91 91 Phosphorus 2.3 L Urine Opiates Screen Ur Barbiturates Screen Ur Amphetamine Screen U Benzodiazepines Scrn Urine Cocaine Screen U Cannabinoids Screen Microbiology 11/28/17 13:40 Blood - Peripheral Aerobic Blood Culture - Preliminary No growth in 3 days 11/28/17 13:40 Blood - Peripheral Anaerobic Blood Culture - Preliminary No growth in 3 days 11/28/17 13:50 Blood - Peripheral Aerobic Blood Culture - Preliminary No growth in 3 days 11/28/17 13:50 Blood - Peripheral Anaerobic Blood Culture - Preliminary No growth in 3 days 11/28/17 16:00 Sputum - Endotracheal Gram Stain - Final 11/28/17 16:00 Sputum - Endotracheal Sputum Culture - Final Heavy growth normal respiratory zhou - Procedures 11/28/17, intubation 11/29/17 extubation Assessment and Plan - Assessment (1) Toxic encephalopathy Code(s): G92 - Toxic encephalopathy Status: Acute (2) Intentional drug overdose Code(s): T50.902A - Poisoning by unspecified drugs, medicaments and biological substances, intentional self-harm, initial encounter Status: Acute (3) Aspiration pneumonia Code(s): J69.0 - Pneumonitis due to inhalation of food and vomit Status: Acute (4) Acute respiratory failure with hypoxia and hypercapnia Code(s): J96.01 - Acute respiratory failure with hypoxia; J96.02 - Acute respiratory failure with hypercapnia Status: Acute (5) Acute kidney injury Code(s): N17.9 - Acute kidney failure, unspecified Status: Acute (6) Lactic acidosis Code(s): E87.2 - Acidosis Status: Acute (7) Elevated troponin Code(s): R74.8 - Abnormal levels of other serum enzymes Status: Acute - Plan Toxic encephalopathy secondary to drug overdose, improving -Unknown whether this is secondary to benzodiazepine, Skelaxin or other medications -CT scan was done which did not indicate any acute abnormality -EEG showing mild encephalopathy. -Avoid sedating medication. -Psychiatry evaluated patient and recommends inpatient psychiatric management, psychiatrist indicates that patient needs to be transferred to med psych unit once medically cleared. -Will be DCd to psych today. Aspiration pneumonia -Patient was on vancomycin and Unasyn, will discontinue IV antibiotics -Start Augmentin 875 mg p.o. twice daily Hypokalemia. Stable. -Replaced per protocol -Continue to monitor and replete as needed Elevated troponin -Likely type II non-ST elevated myocardial infarction secondary to demand ischemia and acute kidney injury -Troponin are trending downward at this time, peaked at 0.39, now 0.08 -Denies any chest pain. Acute hypoxic/hypercapnic respiratory failure, resolved -Patient was intubated for airway support and successfully extubated on 11/29/17 -Continue O2 supplementation maintain O2 sats greater than 92% -Duo nebs as needed Acute kidney injury, resolved -Likely secondary to dehydration, intravascular volume depletion -Improved with IV hydration -Continue monitor renal function Lactic acidosis, resolved -Could be secondary to sepsis, pneumonia, renal failure, -Lactic acid levels trended until normal DVT prevention -Subcutaneous Lovenox Discharge Planning: DC to psych today.
[2017-12-01] MEDS: Lactobacillus Acidophilus/L. Spores Tablet PO SCH ×2 (11:35→14:54)
[2017-12-01 13:06] LABS: Baso # (Auto) 0.2 th/mm3 (0.0-0.2); Baso % (Auto) 1.1 % (0.0-2.0); Eos # (Auto) 0.1 th/mm3 (0.0-0.4); Eos % (Auto) 0.5 % (0.0-4.0); Hematocrit 33.4 % (35.0-46.0); Lymph # (Auto) 2.3 th/mm3 (1.0-4.8); Lymph % (Auto) 11.5 % (9.0-44.0); Mean Corpuscular HGB Conc 32.9 % (32.0-36.0); Mean Corpuscular Hemoglobin 29.5 pg (27.0-34.0); Mean Corpuscular Volume 89.6 fL (80.0-100.0); Mono # (Auto) 0.7 th/mm3 (0.0-0.9); Mono % (Auto) 3.4 % (0.0-8.0); Neut # (Auto) 16.6 th/mm3 (1.8-7.7); Neut % (Auto) 83.5 % (16.0-70.0); Platelet Count 258 th/mm3 (150-450); Red Blood Count 3.73 mil/mm3 (4.00-5.30); Red Cell Distribution Width 13.6 % (11.6-17.2); White Blood Count 19.9 th/mm3 (4.0-11.0)
[2017-12-01 13:16] LABS: Chloride 107 meq/L (98-107); Potassium 3.1 meq/L (3.5-5.1); Sodium 141 meq/L (136-145)
[2017-12-01 13:18] LABS: Calcium 8.6 mg/dL (8.5-10.1)
[2017-12-01 13:19] LABS: Anion Gap 9 meq/L (5-15); Blood Urea Nitrogen 3 mg/dL (7-18); Carbon Dioxide 25.1 meq/L (21.0-32.0); Glucose,Random 117 mg/dL (74-106)
[2017-12-01 13:22] LABS: Glomerular Filtration Rate Greater Than 89 mL/min (>89)
[2017-12-01] MEDS ORDERED: Butalbital/APAP/Caff 50/325/40 MG Tablet PO PRN (14:29)
[2017-12-01] MEDS ORDERED: VANCOMYCIN TROUGH OTHER ONE (14:45)
[2017-12-01] MEDS: Enoxaparin Inj 40 MG/0.4 ML Syringe SQ SCH (14:54)
[2017-12-01 15:44] VITALS: BP 136/79; PULSE 82; RESP 16
[2017-12-02] MEDS ORDERED: VANCOMYCIN TROUGH OTHER ONE (08:45)
== END 2017-12-01 17:00 ==
LOC: PHED 12:35 → PHEDA 14:24 → PHICU 15:57
PROVIDERS: ADMIT Family Medicine; ATTEND Family Medicine

== ENCOUNTER 2017-12-01 16:19 | Inpatient (IN) ==
--- NOTE | 2017-12-02 01:03 | P.CON ---
History of Present Illness Service: [facility] Consult date: 12/01/17 Requesting Physician: Onofre Linares Reason for Consult: Left arm swelling and pain Primary Care Provider: UNKNOWN Chief Complaint: Left arm swelling and pain History of Present Illness: Ms. Eaton is a 62-year-old female with a history of shoulder bursitis, irritable bowel syndrome, migraines, right rotator cuff injury, and TMJ who was initially admitted at [facility] in [place] for severe acute encephalopathy following suspected overdose of unknown medication (possibly benzodiazepines and muscle relaxants) with subsequent respiratory failure requiring ventilation , community-acquired pneumonia, elevated troponins, and acute kidney injury on . She was seen by psychiatry and inpatient hospitalization was recommended with subsequent transfer to the medical psych unit here at [facility] [place] on 12/01/2017 following medical stabilization. [facility] were consulted to see the patient urgently for left arm pain and swelling. The patient is seen in her hospital room. She reports severe left arm pain starting Thursday 11/30 with progressively worsening edema. She became increasingly concerned when it became painful to try to make a fist with her left hand tonight. She denies any injury to the left hand but does report multiple difficult venous accesses performed at [facility] in [place]. Pain is reported as severe and not relieved with application of ice. Patient reports the hand was cold prior to the ice being placed on it. Patient denies any history of coagulopathy or prior blood clots. [facility] - History History Provided By: Patient - Medical History Medical History: Medical History (Last Updated 12/02/17 @ 03:04 by JOSE Hoffmann) Lumbar disc herniation Bursitis Gastric ulcer IBS (irritable bowel syndrome) Migraines Rotator cuff (capsule) sprain Rotator cuff arthropathy of right shoulder Sinusitis TMJ (dislocation of temporomandibular joint) - Surgical History Surgical History: Surgical History (Last Updated 12/02/17 @ 03:04 by JOSE Hoffmann) S/P rotator cuff repair History of ear, nose, and throat (ENT) surgery History of surgery on arm - Family History Family History: Family History (Last Updated 12/02/17 @ 03:03 by JOSE Hoffmann) Mother Lung cancer Father Coronary artery disease - Tobacco History Second Hand Smoke Exposure: No Smoking Status: Never smoker - Alcohol History How Often Do You Have a Drink Containing Alcohol: Monthly or less - Substance Use History Substance History: No History of Abuse Medications and Allergies Active Medications: Active Medications Acetaminophen (Tylenol) 650 mg PO Q4H PRN PRN Reason: Pain 1-5 or Temp >101F Amoxicillin/Clavulanate Potassium (Augmentin 875/125 Mg) 1 tab PO Q12HR RUDY Lactobacillus Acidophilus (Lactinex) 1 tab PO TID RUDY Nicotine (Habitrol 21 Mg Patch.24 Hr) 1 patch T-DERMAL DAILY [facility] Allergies Allergy/AdvReac Type Severity Reaction Status Date / Time diazepam [From Valium] Allergy Anxiety Verified 11/28/17 14:55 hydromorphone [From Dilaudid] Allergy Hallucinati Verified 11/28/17 14:57 ons meperidine [From Demerol] Allergy Nausea/Vomi Verified 11/28/17 14:57 ting propoxyphene [From Darvon] Allergy Nausea/Vomi Verified 11/28/17 14:57 ting Home Medications Medication Instructions Recorded Confirmed Type dexlansoprazole [Dexilant] 60 mg PO DAILY 11/28/17 11/28/17 History duloxetine 60 mg PO DAILY 11/28/17 11/28/17 History metaxalone [Skelaxin] 800 mg PO TID 11/28/17 11/28/17 History ondansetron 8 mg PO TID PRN 11/28/17 11/28/17 History oxycodone-acetaminophen [Percocet] 1 tab PO Q8HR PRN 11/28/17 12/01/17 History temazepam [Restoril] 15 PO EVERY OTHER DAY 11/28/17 History thyroid (pork) [[place] Thyroid] 15 mg PO DAILY 11/28/17 11/28/17 History zaleplon 10 mg PO EVERY OTHER DAY PRN 11/28/17 12/01/17 History Physical Exam Vital signs: Vital Signs 12/02/17 00:46 Temperature 98.3 F Pulse Rate 93 H Respiratory Rate 17 Blood Pressure 140/79 Pulse Oximetry 96 Intake & Output 12/01/17 12/01/17 12/02/17 06:59 18:59 06:59 Intake Total 240 / 240 Balance 240 / 240 Weight 84.7 kg Intake: Oral 240 / 240 Other: # Voids 1 Narrative: GENERAL: This is an older female patient, in no apparent distress. SKIN: Left dorsal surface of hand with a few red IV insertion areas with mild bruising, and bilateral upper extremities with multiple areas of bruising in various stages of healing. HEAD: Atraumatic. Normocephalic. EYES: No scleral icterus. No injection or drainage. ENT: Nose without bleeding, purulent drainage. NECK: Trachea midline. No JVD. CARDIOVASCULAR: Regular rate and rhythm without murmurs, gallops, or rubs. Left hand swelling including fingers, tender to touch including wrist area. Bilateral trace ankle edema. RESPIRATORY: Clear to auscultation. Breath sounds equal bilaterally. No wheezes , rales, or rhonchi. GASTROINTESTINAL: Abdomen soft, non-tender, nondistended. No guarding. MUSCULOSKELETAL: Extremities without clubbing, cyanosis. No calf tenderness. NEUROLOGICAL: Awake and alert. Motor and sensory grossly within normal limits. Normal speech. . Assessment and Plan - Plan Ms. Eaton is a 62-year-old female with a history of shoulder bursitis, irritable bowel syndrome, migraines, right rotator cuff injury, and TMJ who was initially admitted at [facility] in [place] for severe acute encephalopathy following suspected overdose of unknown medication (possibly benzodiazepines and muscle relaxants) with subsequent respiratory failure requiring ventilation , community-acquired pneumonia, elevated troponins, and acute kidney injury on . She was seen by psychiatry and inpatient hospitalization was recommended with subsequent transfer to the medical psych unit here at [facility] on 12/01/2017 following medical stabilization. [facility] were consulted to see the patient urgently for left arm pain and swelling. Left hand/arm pain and swelling -Suspect thrombophlebitis -which should get better with elevation and application of warm moist compresses -Rule out DVT with left upper extremity ultrasound -We will check CBC given patient's recent leukocytosis of 19.9 at the [place] to rule out possible cellulitis -Percocet 5/325 p.o. Community-acquired pneumonia -Continue Augmentin as ordered at the [facility] -patient has 9 days remaining of antibiotic treatment -Probiotics p.o. 3 times daily per patient request Hypokalemia -Potassium 3.1 on labs 12/01 -Recheck potassium in a.m. and replenish as indicated Depression -Management per psychiatry DVT prophylaxis -Pending outcome of left upper extremity ultrasound Discussed Condition With: Patient, RN, and Dr. Simms .
[2017-12-02] MEDS: Amoxicillin/Clavulanate 875/125 MG Tablet PO SCH ×4 (01:34→20:58)
[2017-12-02 01:53] LABS: Baso % (Auto) 0.7 % (0.0-2.0); Eos # (Auto) 0.1 th/mm3 (0.0-0.4); Eos % (Auto) 1.5 % (0.0-4.0); Hematocrit 33.6 % (35.0-46.0); Hemoglobin 11.3 gm/dL (11.6-15.3); Lymph # (Auto) 1.3 th/mm3 (1.0-4.8); Lymph % (Auto) 18.5 % (9.0-44.0); Mean Corpuscular HGB Conc 33.7 % (32.0-36.0); Mean Corpuscular Hemoglobin 29.8 pg (27.0-34.0); Mean Corpuscular Volume 88.3 fL (80.0-100.0); Mono # (Auto) 0.5 th/mm3 (0.0-0.9); Mono % (Auto) 7.9 % (0.0-8.0); Neut % (Auto) 71.4 % (16.0-70.0); Platelet Count 297 th/mm3 (150-450); Red Cell Distribution Width 14.6 % (11.6-17.2); White Blood Count 6.9 th/mm3 (4.0-11.0)
[2017-12-02 02:03] LABS: Anion Gap 9 meq/L (5-15); Blood Urea Nitrogen 4 mg/dL (7-18); Calcium 8.8 mg/dL (8.5-10.1); Carbon Dioxide 25.3 meq/L (21.0-32.0); Chloride 106 meq/L (98-107); Glomerular Filtration Rate Greater Than 89 mL/min (>89); Glucose,Random 104 mg/dL (74-106); Potassium 3.1 meq/L (3.5-5.1); Sodium 140 meq/L (136-145)
[2017-12-02] MEDS: Lactobacillus Acidophilus/L. Spores Tablet PO SCH ×4 (02:08→17:56)
--- NOTE | 2017-12-02 02:33 | US ---
EXAM DATE: 12/02/2017 2:12 AM EDT AGE/SEX: 62 years / Female INDICATIONS: Right arm pain. CLINICAL DATA: This is the patient's initial encounter. Patient reports that signs and symptoms have been present for 1 day and indicates a pain score of 8/10. MEDICAL/SURGICAL HISTORY: . Gastric ulcer. IBS. Rotator cuff sprain. TMJ. . Right should giles rgery. ENT surgery. COMPARISON: No prior exams available for comparison. FINDINGS: The deep venous structures of the right arm are patent and unremarkable. There is clot pre sent within the superficial cephalic vein throughout much of the arm. Other: None. CONCLUSION: 1. No evidence of right upper extremity DVT. 2. Thrombosis of the superficial cephalic vein. Electronically signed by: Onofre Larsen MD 12/02/2017 2:31 AM EDT
[2017-12-02] MEDS: Enoxaparin Inj 40 MG/0.4 ML Syringe SQ SCH (08:49)
[2017-12-02] MEDS ORDERED: LORazepam 1 MG Tablet PO PRN (12:11)
[2017-12-02] MEDS: Duloxetine 60 MG DR Capsule PO SCH (14:21)
--- NOTE | 2017-12-02 18:13 | P.HPPSY ---
Provisional Diagnosis Admission Date: December 01, 2017 17:37 Crowell I.: Adjustment disorder with depressed mood Competence Certification of Person's Competence To Provide Express and Informed Consent I have personally examined Maria Esther Eaton, a person being served at [facility] on, December 02, 2017 1812. Express and informed consent means consent voluntarily given in writing, by a competent person, after sufficient explanation and disclosure of the subject matter involved to enable the person to make a knowing and willful decision without any element of force, fraud, deceit, duress, or other form of constraint or coercion. This person is 18 years of age or older, is not now known to be incompetent to consent to treatment with a guardian advocate, and does not have a health care surrogate or proxy currently making medical treatment decisions. I have found this person to be one of the following: [xxx] Competent to provide express and informed consent, as defined above, for voluntary admission to this facility and is competent to provide express and informed consent for treatment. He/she has the consistent capacity to make well reasoned, willful, and knowing decisions concerning his or her medical or mental health treatment. The person fully and consistently understands the purpose of the admission for examination/placement and is fully capable of personally exercising all rights assured under [place] [] Incompetent to provide express and informed consent to voluntary admission, and this is incompetent to provide express and informed consent to treatment. The person must be transferred to involuntary status and a petition for a guardian advocate filed with the Circuit Court. [] Refusing to provide express and informed consent to voluntary admission but is competent to provide express and informed consent for treatment. The person must be discharged or transferred to involuntary status. Form shall be completed within 24 hours of a person's arrival at the receiving facility and filed in the clinical record of each person: 1. Admitted on a voluntary basis 2. Permitted to provide express and informed consent to his/her own treatment 3. Allowed to transfer from involuntary to voluntary status 4. Prior to permitting a person to consent to his or her own treatment after having been previously found incompetent to consent to treatment. History of Present Illness Capacity: Has capacity History of Present Illness: Patient 62-year-old woman, single, domiciled with sister, retired, no children, past psychiatric history of anxiety disorder, no previous psychiatric admissions, no previous suicide attempt or self-injurious behavior no current outpatient mental health provider, past medical history significant for diabetes , migraines, fibromyalgia, chronic back pain, who was admitted due to recent benzodiazepine overdose patient was found unresponsive by sister medication which psychiatry was consulted for suspected suicide attempt and was subsequently transferred to the inpatient unit for further evaluation and stabilization. Patient initially seen by senior technical writer while patient was on the medical floor other consult as stated below: Patient was found lying hospital bed in 2 point restraints and received ETO last evening due to agitation. Patient continues to be alert and oriented 2, recently extubated yesterday but able to interact and engage in interview today. Patient states she feels "weird" stating that she is at home but that he had told that she has at [facility]. Patient mentions not recalling events that led to her hospitalization but states "they told me to take pills, I do not know which ones". Patient states this is the first time she had that this been the first in her family to attempt to end her life. She states that she was recently turned down for social security disability back in October and states that she had been declined in the past but does not know why she felt overwhelmed by this recently. Patient states "I should not have done it", and states that she has no idea when she took the pills. Patient recalls talking to her sister prior to this event and got to her bedroom and "took pills". Patient states that she is not ready events after that. Patient reports having poor sleep chronically, but no change in appetite energy concentration states that her mood has been "depressed" recently denying any suicide ideation prior to this overdose. Patient denies feeling helpless or hopeless denying perceptual services or delusions. Denies rest of psychiatric review of systems. Patient states currently that she feels "stupid" reports having overdosed, denying any suicide ideations at this time, denies any perceptional services or delusions at this time. Patient continues to have fluctuations of orientation during interview, continues to state that she is at home. Family psychiatric history: Great grandmother with treatment with ECT, reports history of bipolar disorder with no suicides in the family Past psychiatric history: Previous psychiatric diagnoses of anxiety disorder, no previous psychiatric admissions, suicide attempts of interest behavior, no history of abuse. Patient with no outpatient mental health provider. Patient currently on Cymbalta, Xanax in the past. Substance use history: Alcohol use "occasionally" last time use was in October, denies any drug use. Past medical history: TMJ, IVDA, migraines, fibromyalgia, chronic back pain Allergies: Dilaudid, diazepam hydromorphone, meperidine Social history: Single, domiciled sister, retired, no children, no background, no asked to firearms, denies any legal history. Patient was found sitting hospital chair noted B, cooperative with history of bedside interviewed alone. Patient states last evening she had pain in her left hand which she was demanding hospitalist to come see her which made recommendations. Patient today states that she is feeling "tired" reports having poor sleep less evening, but her mood has been "good". Patient states that her recent overdose was due to her not having been able to recall how much of gabapentin she had been taking. Patient states that her stressors prior to this admission was feeling stress about upcoming injections for pain, and not having slept for days. Patient denies any suicidal homicidal ideation at this time, denies any perceptional services. Patient denies any racing thoughts, decreased need for sleep, irritability, denying any other manic symptoms, states that she has had been feeling depressed before. Patient states he does not recall taking collections medicine and states that she just could not sleep feels that this is the reason why she kept taking more pills. Patient this time reports feeling "good" denying any suicidal homicidal ideation at this time , denying any perceptual services. - Inpatient Certification I certify that the inpatient services were ordered in accordance with Medicare regulations governing the order. This includes certification that hospital inpatient services are reasonable and necessary and in the case of services not specified as inpatient-only under 42 CFR 419.22(n), that they are appropriately provided as inpatient services in accordance to with the 2-midnight benchmark under 43 CFR 412.3(e) I certify that inpatient psychiatric hospital services are medically necessary. Evaluation and treatment and/or diagnostic testing are expected to improve the patient's condition. The patient needs on a daily basis, active treatment furnished directly by or requiring the supervision of inpatient psychiatric facility personnel. Estimated Total Length of Stay (Days): 3 Plans for Post Hospital Care: Not yet determined Review of Systems All other systems reviewed negative except as stated in HPI PMFSH - History History Provided By: Patient, Medical Record - Medical History Medical History: Medical History (Last Updated 12/02/17 @ 03:04 by JOSE Hoffmann) Lumbar disc herniation Bursitis Gastric ulcer IBS (irritable bowel syndrome) Migraines Rotator cuff (capsule) sprain Rotator cuff arthropathy of right shoulder Sinusitis TMJ (dislocation of temporomandibular joint) - Surgical History Surgical History: Surgical History (Last Updated 12/02/17 @ 03:04 by JOSE Hoffmann) S/P rotator cuff repair History of ear, nose, and throat (ENT) surgery History of surgery on arm - Family History Family History: Family History (Last Updated 12/02/17 @ 03:03 by JOSE Hoffmann) Mother Lung cancer Father Coronary artery disease - Tobacco History Second Hand Smoke Exposure: No Smoking Status: Never smoker - Alcohol History How Often Do You Have a Drink Containing Alcohol: Monthly or less - Substance Use History Substance History: No History of Abuse Quality Measures - Psychiatric History Psychological trauma history: See HPI Violence risk to others in the last 6 months: Low Violence risk to self in the last 6 months: Elevated due to recent overdose - Substance Abuse History Drug or alcohol use in the past 12 months: See HPI - Patient Strengths Patient's strengths (minimum of 2): Verbal and communicative Medications and Allergies Active Medications: Active Medications Acetaminophen (Tylenol) 650 mg PO Q4H PRN PRN Reason: Pain 1-5 or Temp >101F Amoxicillin/Clavulanate Potassium (Augmentin 875/125 Mg) 1 tab PO Q12HR [facility] Last Admin: 12/02/17 08:49 Dose: 1 tab Duloxetine HCl (Cymbalta) 60 mg PO DAILY [facility] Last Admin: 12/02/17 14:21 Dose: 60 mg Enoxaparin Sodium (Lovenox Inj) 40 mg SQ DAILY [facility] Last Admin: 12/02/17 08:49 Dose: 40 mg Lactobacillus Acidophilus (Lactinex) 1 tab PO TID [facility] Last Admin: 12/02/17 17:56 Dose: 1 tab Lorazepam (Ativan) 1 mg PO Q6H PRN PRN Reason: ANXIETY Nicotine (Habitrol 21 Mg Patch.24 Hr) 1 patch T-DERMAL DAILY [facility] Last Admin: 12/02/17 08:55 Dose: Not Given Non-Formulary Medication (Rizatriptan [Maxalt]) 1 tab PO Q24HR PRN PRN Reason: MIGRAINE HEADACHE Ondansetron HCl (Zofran Odt) 8 mg PO TID PRN PRN Reason: Nausea Temazepam (Restoril) 7.5 mg PO HS PRN PRN Reason: INSOMNIA Thyroid ([place] Thyroid) 15 mg PO DAILY RUDY Allergies Allergy/AdvReac Type Severity Reaction Status Date / Time diazepam [From Valium] Allergy Anxiety Verified 11/28/17 14:55 hydromorphone [From Dilaudid] Allergy Hallucinati Verified 11/28/17 14:57 ons meperidine [From Demerol] Allergy Nausea/Vomi Verified 11/28/17 14:57 ting propoxyphene [From Darvon] Allergy Nausea/Vomi Verified 11/28/17 14:57 ting Home Medications Medication Instructions Recorded Confirmed Type dexlansoprazole [Dexilant] 60 mg PO DAILY 11/28/17 11/28/17 History duloxetine 60 mg PO DAILY 11/28/17 11/28/17 History metaxalone [Skelaxin] 800 mg PO TID 11/28/17 11/28/17 History ondansetron 8 mg PO TID PRN 11/28/17 11/28/17 History oxycodone-acetaminophen [Percocet] 1 tab PO Q8HR PRN 11/28/17 12/01/17 History temazepam [Restoril] 15 PO EVERY OTHER DAY 11/28/17 History thyroid (pork) [[place] Thyroid] 15 mg PO DAILY 11/28/17 11/28/17 History zaleplon 10 mg PO DAILY PRN 11/28/17 12/01/17 History Claritin 1 PO DAILY 12/02/17 History Percocet 1 tab PO Q6HR PRN 12/02/17 12/02/17 History Restasis 1 Q4HR PRN 12/02/17 History rizatriptan [Maxalt] 1 PO Q4HR PRN 12/02/17 History Results - Labs CBC & Chem 7: 12/02/17 01:36 12/02/17 01:36 Labs: Laboratory Results - last 24 hr 12/02/17 12/02/17 01:36 01:36 WBC 6.9 D RBC 3.80 L Hgb 11.3 L Hct 33.6 L MCV 88.3 MCH 29.8 MCHC 33.7 RDW 14.6 Plt Count 297 MPV 8.0 Neut % (Auto) 71.4 H Lymph % (Auto) 18.5 [place] % (Auto) 7.9 Eos % (Auto) 1.5 Baso % (Auto) 0.7 Neut # (Auto) 5.0 Lymph # (Auto) 1.3 [place]yer # (Auto) 0.5 Eos # (Auto) 0.1 Baso # (Auto) 0.0 WBC Differential . Differential Comment Auto diff final Sodium 140 Potassium 3.1 L Chloride 106 Carbon Dioxide 25.3 Anion Gap 9 BUN 4 L Creatinine 0.64 Estimated GFR Greater than 89 Random Glucose 104 Calcium 8.8 - Imaging Impressions Venous Doppler Study 12/02/17 00:00 CONCLUSION: 1. No evidence of right upper extremity DVT. 2. Thrombosis of the superficial cephalic vein. Exam Vital signs: Vital Signs 12/02/17 00:46 12/02/17 06:00 Temperature 98.3 F 97.4 F L Pulse Rate 93 H 78 Respiratory Rate 17 17 Blood Pressure 140/79 138/85 Pulse Oximetry 96 95 Intake & Output 12/01/17 12/02/17 12/02/17 18:59 06:59 18:59 Intake Total 360 / 360 Balance 360 / 360 Weight 84.7 kg Intake: Oral 360 / 360 Other: # Voids 2 Narrative: Patient not noted to be in acute distress, no gross motor of maladies, no signs of tremor or EPS. - Constitutional no acute distress, cooperative Mental Status Examination Appearance: Appropriate Consciousness: Alert Orientation: Person, Place, Date/Time Motor Activity: Normal gait Speech: Unremarkable Language: Adequate Fund of Knowledge: Inadequate Attention and Concentration: Adequate Memory: Impaired (Surrounding events of the overdose) Mood: Good Affect: Appropriate Thought Process & Associations: Intact Thought Content: Appropriate Hallucination Type: None Delusion Type: None Suicidal Ideation: Yes (Denies at this time) Suicidal Plan: No Suicidal Intention: No Homicidal Ideation: No Homicidal Plan: No Homicidal Intention: No Insight: Fair Judgment: Impulsive Assessment and Plan - Assessment (1) Adjustment disorder with depressed mood Code(s): F43.21 - Adjustment disorder with depressed mood Status: Acute - Plan Plan: Estimated LOS: [] days Patient is a 62-year-old woman who carries a diagnosis of anxiety disorder, no previous psychiatric admissions, no previous suicide attempt who was transferred for medical service after stabilization due to recent overdose and suspected suicide attempt. Patient this time noted to minimize recent overdose stating that there was unintentional. Patient has capacity to consent for treatment. Patient will be admitted under voluntary status. We will continue fluoxetine 60 mg p.o. daily, temazepam 7.5 mg p.o. at bedtime as needed insomnia. Continue rest of medications. Hospitalist input appreciated. Continue to monitor mood and behavior. Discharge planning in progress. Justification for Continued Inpatient Stay: At risk for further decompensation a lower level of care.
[2017-12-02] MEDS ORDERED: RIZATRIPTAN PO PRN (18:30)
[2017-12-02] MEDS ORDERED: [UNRECOGNIZED DRUG - OTHER] PO PRN (18:30)
[2017-12-03 07:09] LABS: Anion Gap 11 meq/L (5-15); Blood Urea Nitrogen 3 mg/dL (7-18); Calcium 9.3 mg/dL (8.5-10.1); Carbon Dioxide 23.6 meq/L (21.0-32.0); Chloride 105 meq/L (98-107); Glomerular Filtration Rate Greater Than 89 mL/min (>89); Glucose,Random 110 mg/dL (74-106); Potassium 3.4 meq/L (3.5-5.1); Sodium 140 meq/L (136-145)
[2017-12-03 07:13] LABS: Free T4 (Free Thyroxine) 1.11 ng/dL (0.76-1.46)
[2017-12-03] MEDS: Amoxicillin/Clavulanate 875/125 MG Tablet PO SCH ×2 (08:55→20:36)
[2017-12-03] MEDS: Lactobacillus Acidophilus/L. Spores Tablet PO SCH ×3 (08:55→17:49)
[2017-12-03] MEDS: Enoxaparin Inj 40 MG/0.4 ML Syringe SQ SCH (08:55)
[2017-12-03] MEDS: Duloxetine 60 MG DR Capsule PO SCH (08:55)
[2017-12-03] MEDS: Thyroid 15 MG Tablet PO SCH (08:55)
--- NOTE | 2017-12-03 12:37 | P.DIET ---
Nutritional Evaluation Type of nutrition evaluation: initial Nutrition consult regarding: Diet Evaluation Nutrition screening: [facility] [place] Screening comments: 12/02/17 [facility] [place] for pt requesting specific items for her diet Subjective Subjective Comments: Pt says she needs a "decent yogurt". Pt food preferences taken. Pt has a menu at bedside and has made menu selections. Pt says she wants a probiotic. Objective - Objective [place] body weight: 54.5 kg % IBW: 155 Body Weight Used for Calculations: IBW (54.5kg) Energy Needs - Lower Range (kCal/kg): 28 Energy Needs - Upper Range (kCal/kg): 33 Lower Limit kCal/kg (kCals): 1,526 Upper Limit kCal/kg (kCals): 1,799 Lower Limit Protein Factor (Grams per Kg): 1.3 Upper Limit Protein Factor (Grams per Kg): 1.5 Lower Protein Needs (Protein): 71 Upper Protein Needs (Protein): 82 Fluid Factor (ml/kg): 33 Estimated Fluid Needs (ml): 1,799 Dietitian Reviewed in Medical Record: Current diet, Curent medications, Intake & Output, Labs, Medical history Diet Order: Regular Oral Diet Intake Amount: Good 75-90% Objective Comments: PMH Includes: Anxiety Disorder, Bursitis, Gastric Ulcer, IBS, Lumbar Disc Herniation, Migraines, TMJ Meds Include: Lactinex Assessment Assessment: Pt w/Adequate po intake for meals here 50% or greater. Pt receives a daily menu and she is encouraged to make her daily menu selections. [place] pt's food preferences. Pt reports she is allergic to eggs and "whole" milk. Pt requests to receive yogurt and pudding. Noted pt is receiving a probiotic. Labs reviewed. Dietitian to follow as Needed. Recommendations: 1. Pt encouraged to make her daily menu selections 2. [place] pt's food preferences 3. Pt reports she is allergic to eggs and "whole" milk 4. Noted pt is receiving a probiotic 5. Dietitian to follow as Needed
--- NOTE | 2017-12-03 19:16 | P.PNIM ---
Subjective Interval history: Follow-up bursitis, irritable bowel syndrome, migraines, right rotator cuff injury. Patient sitting in bed complains about irritable bowel movement having 6 loose stools today. Patient stated do not take anything for this at home she just let it go and used to be having this before. Patient also complained about a headache migraine headache which is getting better with caffeine. Patient also stated left hand swelling getting better. Patient denies any dizziness any nausea or vomiting. Patient denies any fever or chills. Physical Exam Vital signs: Vital Signs 12/03/17 06:04 Temperature 98 F Pulse Rate 85 Respiratory Rate 16 Blood Pressure 140/75 Pulse Oximetry 96 Intake & Output 12/03/17 12/03/17 12/04/17 06:59 18:59 06:59 Intake Total 840 / 840 960 / 960 Balance 840 / 840 960 / 960 Weight 85.3 kg Intake: Oral 840 / 840 960 / 960 Other: # Voids 1 2 # Bowel Movements 3 0 Narrative: GENERAL: Well-developed, well-nourished, with no apparent distress. SKIN: Left dorsal surface of hand with a few red puncture areas with mild bruising, and bilateral upper extremities with multiple areas of bruising in various stages of healing. HEAD: Atraumatic. Normocephalic. EYES: No scleral icterus. No injection or drainage. ENT: Nose without bleeding, purulent drainage. NECK: Trachea midline. No JVD. CARDIOVASCULAR: Regular rate and rhythm without murmurs, gallops, or rubs. Bilateral trace ankle edema. RESPIRATORY: Clear to auscultation. Breath sounds equal bilaterally. No wheezes , rales, or rhonchi. GASTROINTESTINAL: Abdomen obese soft, non-tender, nondistended. No guarding. MUSCULOSKELETAL: Extremities without clubbing, cyanosis. No calf tenderness. Left hand swelling including fingers, tender to touch including wrist area. NEUROLOGICAL: Awake and alert and oriented 3, motor and sensory grossly within normal limits. Normal speech. . Results - Labs CBC & Chem 7: 12/02/17 01:36 12/03/17 06:27 Laboratory Results - last 24 hr 12/03/17 12/03/17 12/03/17 06:27 06:27 11:20 Sodium 140 Potassium 3.4 L Chloride 105 Carbon Dioxide 23.6 Anion Gap 11 BUN 3 L Creatinine 0.62 Estimated GFR Greater than 89 Random Glucose 110 H Calcium 9.3 TSH 3.370 Free T4 1.11 Stl C.difficile Tox PCR Negative St C. diff Tox Epid 027 Negative Assessment and Plan - Plan Patient is a 62-year-old female with a history of shoulder bursitis, irritable bowel syndrome, migraines, right rotator cuff injury, and TMJ who was initially admitted at [facility] in [place] for severe acute encephalopathy following suspected overdose of unknown medication (possibly benzodiazepines and muscle relaxants) with subsequent respiratory failure requiring ventilation, community- acquired pneumonia, elevated troponins, and acute kidney injury on 11/28/2017. She was seen by psychiatry and inpatient hospitalization was recommended with subsequent transfer to the medical psych unit here at [facility] on 2017 following [facility] stabilization[facility] for left arm pain and swelling. Left hand/arm pain and swelling -thrombophlebitis -which should get better with elevation and application of warm moist compresses -No DVT with left upper extremity from ultrasound -WBC 6.9 -Percocet 5/325 p.o. Community-acquired pneumonia -Continue Augmentin as ordered at the [facility] -patient has 9 days remaining of antibiotic treatment -Probiotics p.o. 3 times daily per patient request -monitor respiratory status Hypokalemia/ likely due to diarrhea with IBS -Potassium 3.4 today -replaced -Recheck potassium in a.m. and replenish as indicated IBS - loose stools -add questran -monitor Migraine headache - continue home medication -monitor Depression -Management per psychiatry DVT prophylaxis: increase ambulation - Discussed Condition With: patient and nurse
[2017-12-03] MEDS ORDERED: Temazepam 15 MG Capsule PO PRN (21:00)
[2017-12-03] MEDS: Acetaminophen 325 MG Tablet PO PRN (21:49)
--- NOTE | 2017-12-03 22:10 | P.PNPSY ---
Subjective Remarks: Patient seen for follow up; chart reviewed. Discussion with nursing staff reported patient calm and cooperative with staff. Patient was found sitting on hospital chair, noted to be calm and cooperative. Patient states that she has a lot of work to do referring to self improvement and states that she need to start expressing her thoughts. She reports having 5 episodes of loose stool which she states is secondary to her IBS. She reports her mood as being "fine" , denies feeling depressed, denies any SI. She states that her reasons to live are for her family, wanting to travel. Review of Systems All other systems reviewed negative except as stated in HPI Mental Status Examination Appearance: Appropriate Consciousness: Alert Orientation: Person, Place, Date/Time Motor Activity: Normal gait Speech: Unremarkable Language: Adequate Fund of Knowledge: Inadequate Attention and Concentration: Adequate Memory: Impaired (Surrounding events of the overdose) Mood: Good Affect: Appropriate Thought Process & Associations: Intact Thought Content: Appropriate Hallucination Type: None Delusion Type: None Suicidal Ideation: No Suicidal Plan: No Suicidal Intention: No Homicidal Ideation: No Homicidal Plan: No Homicidal Intention: No Insight: Fair Judgment: Impulsive Assessment and Plan - Assessment (1) Adjustment disorder with depressed mood Code(s): F43.21 - Adjustment disorder with depressed mood Status: Acute - Plan Plan: Patient noted with improvement of mood, reporting feeling less depressed, motivated to continue treatment and engage in therapy. Continue current treatment, will increase temazepam to 15mg HS for sleep disturbance. Send for stool sample to test for Cdiff. continue to monitor mood and behavior. Discharge planning in progress. Justification for Continued Inpatient Stay: At risk for further decompensation at lower level of care.
[2017-12-03 22:41] VITALS: O2SAT 95
[2017-12-04] MEDS: Acetaminophen 325 MG Tablet PO PRN ×3 (03:00→10:37)
[2017-12-04 05:57] VITALS: BP 117/71; PULSE 78; RESP 16; TEMP 97.2
[2017-12-04] MEDS: Thyroid 15 MG Tablet PO SCH (08:33)
[2017-12-04] MEDS: Lactobacillus Acidophilus/L. Spores Tablet PO SCH (08:34)
[2017-12-04] MEDS: Duloxetine 60 MG DR Capsule PO SCH (08:34)
[2017-12-04] MEDS: Enoxaparin Inj 40 MG/0.4 ML Syringe SQ SCH (08:35)
[2017-12-04] MEDS: Amoxicillin/Clavulanate 875/125 MG Tablet PO SCH (09:29)
[2017-12-04 09:45] LABS: Calcium 9.9 mg/dL (8.5-10.1); Carbon Dioxide 21.6 meq/L (21.0-32.0); Potassium 3.1 meq/L (3.5-5.1)
--- NOTE | 2017-12-04 11:46 | P.PNIM ---
Subjective Interval history: Follow-up bursitis, irritable bowel syndrome, migraines, right rotator cuff injury. Pt sitting in the chair, stated she is ready to go home. Denies any pain or shortness of breath. Patient stated Left hand and arm edema better, can move better, can product picker the spoon now and able to eat. Patient stated loose stools better and started questran last night. pt stated she had been having on and off loose stools due to her IBS and used to it. Denies any nausea or vomiting, denies any fever or chills, denies any chest pain or shortness of breath. Physical Exam Vital signs: Vital Signs 12/03/17 18:00 12/04/17 05:56 Temperature 98.2 F 97.2 F L Pulse Rate 83 78 Respiratory Rate 18 16 Blood Pressure 136/72 117/71 Pulse Oximetry 95 95 Intake & Output 12/03/17 12/04/17 12/04/17 18:59 06:59 18:59 Intake Total 960 / 960 840 / 840 240 / 240 Balance 960 / 960 840 / 840 240 / 240 Intake: Oral 960 / 960 840 / 840 240 / 240 Other: # Voids 2 2 # Bowel Movements 0 Narrative: GENERAL: Well-developed, well-nourished, with no apparent distress. SKIN: Left dorsal surface of hand with a few red puncture areas with mild bruising, and bilateral upper extremities with multiple areas of bruising in various stages of healing. HEAD: Atraumatic. Normocephalic. EYES: No scleral icterus. No injection or drainage. ENT: Nose without bleeding, purulent drainage. NECK: Trachea midline. No JVD. CARDIOVASCULAR: Regular rate and rhythm without murmurs, gallops, or rubs. Bilateral trace ankle edema. RESPIRATORY: Clear to auscultation. Breath sounds equal bilaterally. No wheezes , rales, or rhonchi. GASTROINTESTINAL: Abdomen obese soft, non-tender, nondistended. No guarding. MUSCULOSKELETAL: Extremities without clubbing, cyanosis. No calf tenderness. Left hand swelling improving, slight tenderness to touch including wrist area. NEUROLOGICAL: Awake and alert and oriented 3, motor and sensory grossly within normal limits. Normal speech. . Results - Labs CBC & Chem 7: 12/02/17 01:36 12/04/17 08:53 Laboratory Results - last 24 hr 12/03/17 12/04/17 11:20 08:53 Sodium 140 Potassium 3.1 L Chloride 105 Carbon Dioxide 21.6 Anion Gap 13 BUN 3 L Creatinine 0.87 Estimated GFR 66 L Random Glucose 121 H Calcium 9.9 Stl C.difficile Tox PCR Negative St C. diff Tox Epid 027 Negative Assessment and Plan - Assessment (1) Thrombophlebitis arm Code(s): I80.8 - Phlebitis and thrombophlebitis of other sites Status: Acute (2) Aspiration pneumonia Code(s): J69.0 - Pneumonitis due to inhalation of food and vomit Status: Acute (3) Acute respiratory failure with hypoxia and hypercapnia Code(s): J96.01 - Acute respiratory failure with hypoxia; J96.02 - Acute respiratory failure with hypercapnia Status: Acute (4) Acute kidney injury Code(s): N17.9 - Acute kidney failure, unspecified Status: Acute - Plan Patient is a 62-year-old female with a history of shoulder bursitis, irritable bowel syndrome, migraines, right rotator cuff injury, and TMJ who was initially admitted at [facility] [place] for severe acute encephalopathy following suspected overdose of unknown medication (possibly benzodiazepines and muscle relaxants) with subsequent respiratory failure requiring ventilation, community- acquired pneumonia, elevated troponins, and acute kidney injury on 11/28/2017. She was seen by psychiatry and inpatient hospitalization was recommended with subsequent transfer to the medical psych unit here at [facility] on 2017 following medical stabilization. [facility] were consulted to see the patient urgently for left arm pain and swelling. Left hand/arm pain and swelling -thrombophlebitis -which should get better with elevation and application of warm moist compresses -No DVT with left upper extremity from ultrasound -WBC 6.9 -Percocet prn Community-acquired pneumonia -Continue Augmentin as ordered at the [facility] -patient has 9 days remaining of antibiotic treatment -Probiotics p.o. 3 times daily per patient request -monitor respiratory status -continue Amox/Clav for 4 more days Hypokalemia/ likely due to diarrhea with IBS -Potassium 3.1 today -started on KCL replacements -Recheck BMP as outpatient in 1 week and follow up with [facility] IBS - loose stools -add questran -monitor BMP and Mg level Migraine headache -improving - continue home medication -monitor Depression -Management per psychiatry DVT prophylaxis: increase ambulation - Discussed Condition With: patient, family and nurse Discharge Planning: may discharge today with family
--- NOTE | 2017-12-06 21:49 | P.DSPSY ---
Psychiatry Discharge Summary Inpatient Psychiatric care?: Yes Advance Directives: Yes Reason for Unknown:: Other Mental Health Advance Directive: No Health Care Proxy: No - Admission Admission Date: December 01, 2017 17:37 - Admission Diagnosis (1) Adjustment disorder with depressed mood Code(s): F43.21 - Adjustment disorder with depressed mood Brief History: Patient 62-year-old woman, single, domiciled with sister, retired, no children, past psychiatric history of anxiety disorder, no previous psychiatric admissions, no previous suicide attempt or self-injurious behavior no current outpatient mental health provider, past medical history significant for diabetes , migraines, fibromyalgia, chronic back pain, who was admitted due to recent benzodiazepine overdose patient was found unresponsive by sister medication which psychiatry was consulted for suspected suicide attempt and was subsequently transferred to the inpatient unit for further evaluation and stabilization. Patient initially seen by narrative writer while patient was on the medical floor other consult as stated below: Patient was found lying hospital bed in 2 point restraints and received ETO last evening due to agitation. Patient continues to be alert and oriented 2, recently extubated yesterday but able to interact and engage in interview today. Patient states she feels "weird" stating that she is at home but that he had told that she has at [facility]. Patient mentions not recalling events that led to her hospitalization but states "they told me to take pills, I do not know which ones". Patient states this is the first time she had that this been the first in her family to attempt to end her life. She states that she was recently turned down for social security disability back in October and states that she had been declined in the past but does not know why she felt overwhelmed by this recently. Patient states "I should not have done it", and states that she has no idea when she took the pills. Patient recalls talking to her sister prior to this event and got to her bedroom and "took pills". Patient states that she is not ready events after that. Patient reports having poor sleep chronically, but no change in appetite energy concentration states that her mood has been "depressed" recently denying any suicide ideation prior to this overdose. Patient denies feeling helpless or hopeless denying perceptual services or delusions. Denies rest of psychiatric review of systems. Patient states currently that she feels "stupid" reports having overdosed, denying any suicide ideations at this time, denies any perceptional services or delusions at this time. Patient continues to have fluctuations of orientation during interview, continues to state that she is at home. Family psychiatric history: Great grandmother with treatment with ECT, reports history of bipolar disorder with no suicides in the family Past psychiatric history: Previous psychiatric diagnoses of anxiety disorder, no previous psychiatric admissions, suicide attempts of interest behavior, no history of abuse. Patient with no outpatient mental health provider. Patient currently on Cymbalta, Xanax in the past. Substance use history: Alcohol use "occasionally" last time use was in October, denies any drug use. Past medical history: TMJ, IVDA, migraines, fibromyalgia, chronic back pain Allergies: Dilaudid, diazepam hydromorphone, meperidine Social history: Single, domiciled sister, retired, no children, no background, no asked to firearms, denies any legal history. Patient was found sitting hospital chair noted B, cooperative with history of bedside interviewed alone. Patient states last evening she had pain in her left hand which she was demanding hospitalist to come see her which made recommendations. Patient today states that she is feeling "tired" reports having poor sleep less evening, but her mood has been "good". Patient states that her recent overdose was due to her not having been able to recall how much of gabapentin she had been taking. Patient states that her stressors prior to this admission was feeling stress about upcoming injections for pain, and not having slept for days. Patient denies any suicidal homicidal ideation at this time, denies any perceptional services. Patient denies any racing thoughts, decreased need for sleep, irritability, denying any other manic symptoms, states that she has had been feeling depressed before. Patient states he does not recall taking collections medicine and states that she just could not sleep feels that this is the reason why she kept taking more pills. Patient this time reports feeling "good" denying any suicidal homicidal ideation at this time , denying any perceptual services. Tobacco Use In Past 30 Days: No How Often Do You Have a Drink Containing Alcohol: Monthly or less Hospital Course: Patient 62-year-old woman, single, domiciled with sister, retired, no children, past psychiatric history of anxiety disorder, no previous psychiatric admissions, no previous suicide attempt or self-injurious behavior no current outpatient mental health provider, past medical history significant for diabetes, migraines, fibromyalgia, chronic back pain, who was admitted due to recent benzodiazepine overdose patient was found unresponsive by sister medication which psychiatry was consulted for suspected suicide attempt and was subsequently transferred to the inpatient unit for further evaluation and stabilization. Patient was resumed on medications which she tolerated well with no notable adverse drug reactions. She was observed by staff not to have had any behavioral disturbances, denied suicidal ideation and denied any homicidal ideations. Patient was able to reach and maintain stable mood during admission and was noted to participate with staff adequately. Patient was noted to participate in self-care, engaged with staff and maintaining adequate hygiene. Patient reported feeling hopeful, future oriented and motivated to continue treatment. Treatment team was able to set up outpatient follow-up appointments which patient can continue for continuity of care. Upon discharge patient stated feeling "good" reported feeling well with treatment, agreed to continue treatment and return home with her sister. Patient from a mental health perspective no longer met criteria for continued inpatient level of care. Patient denied any SI, HI, perceptual disturbances or delusions. Weighing the acute, chronic, and protective factors and based on the available evidence, I milk sampler to a reasonable degree of medical certainty that the patient is at low imminent risk of harm to self or others for mental illness as defined under the [place] act and her level of function is adequate as observed on the unit for planned level of outpatient care. Patient was counseled regarding warning signs for need to return to the psychiatric emergency room as part of the general safety plan. Patient advised to call 911 or go to nearest ED in case of emergency. Patient agrees with plan. - Discharge Discharge Date: 12/04/17 - Discharge Diagnosis (1) Adjustment disorder with depressed mood Code(s): F43.21 - Adjustment disorder with depressed mood Status: Acute Discharge Disposition: Home - Discharge Instructions Discharge Diet: Heart Healthy Diet Activities You Can Perform: Weight Bearing As Tolerat - Discharge Time > 30 minutes Mental Status Examination Appearance: Appropriate Consciousness: Alert Orientation: Person, Place, Date/Time Motor Activity: Normal gait Speech: Unremarkable Language: Adequate Fund of Knowledge: Inadequate Attention and Concentration: Adequate Memory: Impaired (Surrounding events of the overdose) Mood: Good Affect: Appropriate Thought Process & Associations: Intact Thought Content: Appropriate Hallucination Type: None Delusion Type: None Suicidal Ideation: No Suicidal Plan: No Suicidal Intention: No Homicidal Ideation: No Homicidal Plan: No Homicidal Intention: No Insight: Fair Judgment: Impulsive Discharge/Advance Care Plan - Results Vital Signs: Last Vital Signs Temp 97.2 F L 12/04/17 05:56 Pulse 78 12/04/17 05:56 Resp 16 12/04/17 05:56 BP 117/71 12/04/17 05:56 Pulse Ox 95 12/04/17 05:56 Lab Results: Laboratory Results TSH 3.370 uIU/mL (0.358-3.740) 12/03/17 06:27 Free T4 1.11 ng/dL (0.76-1.46) 12/03/17 06:27 Summary of Procedures: none Imaging: ITS Impressions Venous Doppler Study 12/02/17 00:00 CONCLUSION: 1. No evidence of right upper extremity DVT. 2. Thrombosis of the superficial cephalic vein. Pending Results: None - Medications Number of antipsychotic medications at discharge: 0 - Discharge Care Plan Goals to Promote Your Health: * To prevent worsening of your condition and complications * To maintain your health at the optimal level Directions to Meet Your Goals: Take your medications as prescribed Follow your dietary instruction Follow activity as directed Keep your appointments as scheduled Take your immunizations and boosters as scheduled If your symptoms worsen call your PCP, if no PCP go to Urgent Care Center or Emergency Room For 06/10 questions related to your inpatient stay or results of tests pending at discharge, please contact Dr. Giovany De Jesus MD at Smoking is Dangerous to Your Health. Avoid second hand smoking
== END 2017-12-04 12:33 | disposition home or self-care (01) ==
LOC: H4EA 17:37
PROVIDERS: ADMIT Student in an Organized Health Care Education/Training Program; ATTEND Student in an Organized Health Care Education/Training Program